=== PATIENT | male | born 1950 | race Caucasian/White ===

== ENCOUNTER 2017-10-24 22:55 | Inpatient (IN) ==
[2017-10-25 00:06] LABS: Basophils % 0.2 %; Eosinophils % 0.7 %; Hematocrit 39.8 % (37.5-50.1); Hemoglobin 13.9 g/dL (12.9-16.9); Immature Granulocytes % 0.3 % (0-4); Lymphocytes # 0.7 K/mcL (0.6-4.6); Lymphocytes % 12.5 %; Mean Corpuscular HGB Conc 34.9 g/dL (31.6-35.5); Mean Corpuscular Volume 83.1 fL (83.0-100.0); Mean Platelet Volume 8.9 fL (9.4-12.4); Monocytes # 0.4 K/mcL (0.0-1.3); Monocytes % 6.9 %; Neutrophils # 4.6 K/mcL (1.6-8.9); Platelet Count 214 K/mcL (140-400); Red Blood Count 4.79 M/mcL (4.19-5.50); Red Cell Distribution Width 12.9 % (11.5-14.5); Segmented Neutrophils % 79.4 %
[2017-10-25 00:51] LABS: BUN/Creatinine Ratio 16 (6-26); Blood Urea Nitrogen 8 mg/dL (8-23); Calcium 8.7 mg/dL (8.6-10.3); Carbon Dioxide 27 mEq/L (23-29); Chloride 84 mEq/L (98-107); Glucose 124 mg/dL (70-105); Osmolality,Calculated 250 (280-300); Potassium 4.5 mEq/L (3.5-5.1); Sodium 120 mEq/L (136-145); eGFR For African Americans > 60 (> 60); eGFR For Non-African Americans > 60 (> 60)
[2017-10-25] MEDS ORDERED: 0.9 % Sodium Chloride 1,000 ML IVC ONE (01:05)
[2017-10-25] MEDS ORDERED: *HR* OxyCODONE Immed Rel 5 MG TABLET PO ONE (04:00)
[2017-10-25] MEDS ORDERED: Benzonatate 100 MG CAPSULE PO STA (04:00)
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
--- NOTE | 2017-10-25 08:46 | Electrocardiograph Report ---
[place] [id number] Test Date: 2017-10-24 Pat Name: Alireza Samuels Department: 102 Room: 2N01 Gender: M Story Writer: : 1950 Requested By: Mark Richard Order Number: [id number] Reading MD: Hebert Landers DO Measurements Intervals Hector Rate: 95 P: 83 OK: 175 QRS: 65 QRSD: 86 T: 77 QT: 348 QTc: 401 Interpretive Statements SINUS RHYTHM Electronically Signed On 10-25-2017 8:44:16 EST by Hebert Landers DO
[2017-10-25] MEDS ORDERED: Naloxone 0.4 MG/ML INJ IVP PRN (09:56)
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
[2017-10-25] MEDS ORDERED: Ipratropium/Albuterol Neb 3 ML IH PRN (10:16)
[2017-10-25 10:25] LABS: Bilirubin,Urine Negative (Negative); Blood,Urine Large (Negative); Clarity,Urine Cloudy (Clear); Color,Urine Pink (Yellow); Glucose,Urine (UA) Normal (Normal); Ketones,Urine Negative (Negative); Leukocyte Esterase,Urine Moderate (Negative); Nitrite,Urine Negative (Negative); PH,Urine 6.5 pH Units (5.0-8.0); Protein,Urine 30 mg/dL (Neg-Trace); Urobilinogen,Urine Normal (Normal)
[2017-10-25] MEDS: cefTRIAXone 1,000 MG in Water for inj. (sterile) 20 ML 20 ML IVPB SCH (10:31)
[2017-10-25] MEDS: Azithromycin 500 MG in D5% in Water 250 ML IVPB SCH (10:35)
[2017-10-25 11:07] LABS: BUN/Creatinine Ratio 10 (6-26); Blood Urea Nitrogen 5 mg/dL (8-23); Calcium 8.6 mg/dL (8.6-10.3); Carbon Dioxide 27 mEq/L (23-29); Chloride 85 mEq/L (98-107); Glucose 99 mg/dL (70-105); Osmolality,Calculated 241 (280-300); Potassium 4.2 mEq/L (3.5-5.1); Sodium 117 mEq/L (136-145); eGFR For African Americans > 60 (> 60); eGFR For Non-African Americans > 60 (> 60)
[2017-10-25 11:19] LABS: RBC,Urine TNTC per hpf (0-3); WBC,Urine TNTC per hpf (0-3)
[2017-10-25 11:20] LABS: Bacteria,Urine Moderate per hpf (None-Few); Renal Epithelial Cells,Urine Few per hpf (None-Few); Transitional Epi Cells,Urine Few per hpf (None-Few)
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
[2017-10-25] MEDS ORDERED: Cosyntropin 250 MCG/2 ML VIAL IVP ONE (11:30)
[2017-10-25] MEDS ORDERED: 0.9 % Sodium Chloride 1,000 ML IVC SCH (11:45)
[2017-10-25 13:23] LABS: Thyroid Stimulating Hormone 1.563 mcIU/mL (0.340-5.600)
[2017-10-25] MEDS: *HR* OxyCODONE Immed Rel 15 MG TABLET PO SCH ×2 (16:34→21:46)
[2017-10-25] MEDS: MethylPREDNISolone 40 MG/ML VIAL IVP SCH (16:34)
[2017-10-25] MEDS: *HR* Heparin 5,000 UNIT/ML VIAL SQ SCH (16:35)
[2017-10-26] MEDS: MethylPREDNISolone 40 MG/ML VIAL IVP SCH ×3 (01:19→18:05)
[2017-10-26] MEDS: *HR* Heparin 5,000 UNIT/ML VIAL SQ SCH ×3 (01:19→18:05)
[2017-10-26] MEDS: 0.9 % Sodium Chloride 1,000 ML IVC SCH ×2 (01:20→11:39)
[2017-10-26] MEDS ORDERED: Cosyntropin 250 MCG/2 ML VIAL IVP ONE (04:01)
[2017-10-26 05:38] LABS: Alanine Aminotransferase 44 Units/L (7-52); Albumin 3.7 g/dL (3.5-5.7); Albumin/Globulin Ratio 1.2 (1.1-2.2); Alkaline Phosphatase 68 Units/L (34-104); Aspartate Amino Transferase 112 Units/L (13-39); BUN/Creatinine Ratio 14 (6-26); Bilirubin,Total 0.8 mg/dL (0.3-1.0); Blood Urea Nitrogen 7 mg/dL (8-23); Calcium 8.1 mg/dL (8.6-10.3); Carbon Dioxide 29 mEq/L (23-29); Chloride 80 mEq/L (98-107); Chol/HDL Ratio 2.4 (0-4.9); Cholesterol 124 mg/dL (< 200); Glucose 123 mg/dL (70-105); HDL Cholesterol 52 mg/dL (40-59); LDL Cholesterol,Calculated 58 mg/dL (0-99); Magnesium 1.6 mg/dL (1.6-2.6); Osmolality,Calculated 237 (280-300); Phosphorous 2.9 mg/dL (2.7-4.5); Potassium 4.6 mEq/L (3.5-5.1); Sodium 114 mEq/L (136-145); Total Protein 6.7 g/dL (6.4-8.9); Triglycerides 71 mg/dL (< 150); eGFR For African Americans > 60 (> 60); eGFR For Non-African Americans > 60 (> 60)
[2017-10-26 05:50] LABS: Prothrombin Time 11.2 Seconds (9.4-12.1)
[2017-10-26 05:53] LABS: Activated Partial Thrombo Time 29.7 Seconds (26.0-36.0)
[2017-10-26 05:58] LABS: Hematocrit 37.9 % (37.5-50.1); Hemoglobin 13.3 g/dL (12.9-16.9); Immature Granulocytes % 0.3 % (0-4); Lymphocytes # 0.4 K/mcL (0.6-4.6); Lymphocytes % 6.7 %; Mean Corpuscular HGB Conc 35.1 g/dL (31.6-35.5); Mean Corpuscular Hemoglobin 29.1 pg (28.0-33.3); Mean Corpuscular Volume 82.9 fL (83.0-100.0); Mean Platelet Volume 9.9 fL (9.4-12.4); Monocytes # 0.1 K/mcL (0.0-1.3); Neutrophils # 5.5 K/mcL (1.6-8.9); Platelet Count 206 K/mcL (140-400); Red Blood Count 4.57 M/mcL (4.19-5.50); Red Cell Distribution Width 12.6 % (11.5-14.5)
[2017-10-26] MEDS: *HR* OxyCODONE Immed Rel 15 MG TABLET PO SCH ×2 (08:18→18:01)
--- NOTE | 2017-10-26 09:16 | Nephrology Progress Note ---
Date of Encounter: 10/26/17 Time of Encounter: 08:15 - Assessment and Plan (1) Hyponatremia Current Visit: Yes Status: Acute Hyponatremia-Prior sodium levels from 2014- Jun 2017 range 134-137. Diferential diagnosis-SAIDH like syndrome versus poor oral intake. Work up in progress. IV 0.9 NS at 125 cc/hr. Sodium down to 116, now 117 with increase in IV saline. Renal US negative. Etiology unclear, awaiting urine osum for review. Azithromycin for moderate leuks in urine. Subjective Interval history: Sitting up in bed, watching tv. States feels good. Discussed unclear etiology of hyponatremia, labs pending. Objective - Vital Signs Vital signs: Vital Signs Temp Pulse Resp BP Pulse Ox 10/26/17 07:06 97.7 F 85 18 128/82 94 10/26/17 06:00 88 20 145/102 93 10/26/17 03:00 86 24 150/101 97 10/26/17 00:58 98.4 F 98 18 155/93 94 10/25/17 22:54 88 10/25/17 22:40 88 18 147/92 95 10/25/17 19:54 104 10/25/17 19:33 98.2 F 112 16 117/76 96 10/25/17 19:20 90 10/25/17 19:00 107 24 117/76 90 10/25/17 16:15 97.7 F 89 15 79/60 96 10/25/17 11:35 97.7 F 89 15 79/60 96 10/25/17 11:11 97.7 F 89 15 79/60 96 Intake and Output 10/25/17 10/26/17 10/26/17 23:59 07:59 15:59 Intake Total 1160 / 1160 Output Total 0 / 0 1500 / 1500 Balance 1160 / 1160 -1500 / -1500 Intake: Oral 1160 / 1160 Output: Urine 0 / 0 Straight Cath 1500 / 1500 Other: Meal Dinner Percent of Meal Consumed 100% Weight 60.9 kg Patient Weight 10/26/17 23:59 Weight 60.9 kg - General Appearance General appearance: Present: well-developed, appears started age EENT: Present: mucous membranes moist Neck: Present: no JVD Respiratory: Present: clear Cardiology: Present: no edema, regular rate, regular rhythm Gastrointestinal: Present: normoactive bowel sounds, no tenderness Integumentary: Present: warm and dry Neurologic: Present: alert and oriented x3 Psychiatric: Present: mood/affect appropriate, cooperative - Lab 10/26/17 03:55 10/26/17 06:00 Most recent lab results Calcium 8.1 mg/dL (8.6-10.3) L 10/26/17 03:55 Phosphorus 2.9 mg/dL (2.7-4.5) 10/26/17 03:55 Magnesium 1.6 mg/dL (1.6-2.6) 10/26/17 03:55 Consult Discharge Plan - Plan Referrals: Robina Newman MD [Primary Care Provider] - 10/31/17 1:30 pm
[2017-10-26] MEDS: cefTRIAXone 1,000 MG in Water for inj. (sterile) 20 ML 20 ML IVPB SCH (09:23)
[2017-10-26] MEDS: Azithromycin 500 MG in D5% in Water 250 ML IVPB SCH (09:38)
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
[2017-10-26] MEDS ORDERED: *HR* LORazepam 2 MG/ML VIAL IVP ONE (15:51)
[2017-10-26] MEDS ORDERED: *HR* LORazepam 2 MG/ML VIAL ONE ×2 (15:55→16:21)
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
[2017-10-26 19:19] VITALS: BP 125/81
== END 2017-10-26 19:30 | disposition other institution (70) | DRG 191 ==
LOC: EMEROO 22:55 → 2NNU 22:55
PROVIDERS: ADMIT Student in an Organized Health Care Education/Training Program; ATTEND Hospitalist

== ENCOUNTER 2020-10-03 13:34 | Inpatient (IN) ==
[2020-10-03] MEDS ORDERED: Ondansetron 4 MG/2 ML VIAL IVP ONE (13:49)
[2020-10-03] MEDS ORDERED: Isovue-370 500 ML BOTTLE IVP ONE ×2 (13:50→20:24)
[2020-10-03] MEDS ORDERED: Ipratropium/Albuterol Neb 3 ML IH ONE (13:57)
[2020-10-03 14:20] LABS: Hematocrit 27.6 % (37.5-50.1); Hemoglobin 9.2 g/dL (12.9-16.9); Mean Corpuscular HGB Conc 33.3 g/dL (31.6-35.5); Mean Corpuscular Hemoglobin 29.6 pg (28.0-33.3); Mean Corpuscular Volume 88.7 fL (83.0-100.0); Mean Platelet Volume 8.8 fL (9.4-12.4); Platelet Count 574 K/mcL (140-400); Red Blood Count 3.11 M/mcL (4.19-5.50); Red Cell Distribution Width 14.6 % (11.5-14.5); White Blood Count 19.2 K/mcL (4.3-11.1)
[2020-10-03 14:27] LABS: INR 1.2; Prothrombin Time 13.5 Seconds (9.4-12.1)
[2020-10-03 14:30] LABS: Activated Partial Thrombo Time 26.2 Seconds (26.0-36.0)
[2020-10-03] MEDS ORDERED: Piperacillin/Tazobactam 4.5 GM in Water for inj. (sterile) 20 ML IVP ONE (14:34)
[2020-10-03 14:43] LABS: Lymphocytes # 0.8 K/mcL (0.6-4.6); Monocytes # 0.4 K/mcL (0.0-1.3); Neutrophils # 18.1 K/mcL (1.6-8.9)
[2020-10-03 14:45] LABS: Bacteria,Urine Few per hpf (None-Few); Bilirubin,Urine Negative (Negative); Blood,Urine Large (Negative); Clarity,Urine Ex.Turbid (Clear); Color,Urine Yellow (Yellow); Glucose,Urine (UA) Normal (Normal); Ketones,Urine Negative (Negative); Leukocyte Esterase,Urine Large (Negative); Nitrite,Urine Negative (Negative); PH,Urine 5.5 pH Units (5.0-8.0); Protein,Urine 100 mg/dL (Neg-Trace); RBC,Urine 15-30 per hpf (0-3); Specific Gravity,Urine 1.024 (1.010-1.025); Squamous Epithelial Cell,Urine Few per hpf (None-Few); Urobilinogen,Urine Normal (Normal); WBC,Urine TNTC per hpf (0-3)
[2020-10-03 14:53] LABS: Alanine Aminotransferase 16 Units/L (7-52); Albumin 3.2 g/dL (3.5-5.7); Albumin/Globulin Ratio 0.8 (1.1-2.2); Alkaline Phosphatase 61 Units/L (34-104); Amylase 18 Units/L (29-103); Aspartate Amino Transferase 27 Units/L (13-39); BUN/Creatinine Ratio 28 (6-26); Bilirubin,Direct 0.1 mg/dL (0.0-0.2); Bilirubin,Indirect 0.4 mg/dL (0.0-1.0); Bilirubin,Total 0.5 mg/dL (0.3-1.0); Blood Urea Nitrogen 74 mg/dL (8-23); Calcium 12.7 mg/dL (8.6-10.3); Carbon Dioxide 28 mEq/L (23-29); Chloride 84 mEq/L (98-107); Globulin 3.8 g/dL (2.4-3.5); Glucose 134 mg/dL (70-105); Lipase < 3 Units/L (11-82); Osmolality,Calculated 282 (280-300); Potassium 4.9 mEq/L (3.5-5.1); Sodium 124 mEq/L (136-145); Troponin I < 0.03 ng/mL (< 0.04); eGFR For African Americans 29 (> 60); eGFR For Non-African Americans 24 (> 60)
[2020-10-03] MEDS ORDERED: 0.9 % Sodium Chloride 1,000 ML IVC ONE (14:55)
[2020-10-03] MEDS ORDERED: Piperacillin/Tazobactam 3.375 GM in 0.9 % Sodium Chloride Mini Bag 100 ML IVPB ONE (15:00)
[2020-10-03 15:38] LABS: Adenovirus Not Detected (Not Detect); Bordetella Pertussis Not Detected (Not Detect); Chlamydophila pneumoniae Not Detected (Not Detect); Coronavirus 229E Not Detected (Not Detect); Coronavirus HKU1 Not Detected (Not Detect); Coronavirus NL63 Not Detected (Not Detect); Coronavirus OC43 Not Detected (Not Detect); Human Metapneumovirus Not Detected (Not Detect); Human Rhinovirus/Enterovirus Not Detected (Not Detect); Influenza A Subtype 2009 H1 Not Detected (Not Detect); Influenza B Not Detected (Not Detect); Mycoplasma pneumoniae Not Detected (Not Detect); Parainfluenza Virus 1 Not Detected (Not Detect); Parainfluenza Virus 2 Not Detected (Not Detect); Parainfluenza Virus 3 Not Detected (Not Detect); Parainfluenza Virus 4 Not Detected (Not Detect); Respiratory Syncytial Virus Not Detected (Not Detect); SARS-CoV-2 Not Detected (Not Detect)
[2020-10-03] MEDS ORDERED: 0.9 % Sodium Chloride 1,000 ML ONE (16:32)
[2020-10-03] MEDS: Ringers Solution, Lactated 1,000 ML IVC ONE ×2 (17:20→18:01)
[2020-10-03] MEDS ORDERED: *HR* Midazolam HCl 5 MG/5 ML VIAL IVP ONE (17:39)
[2020-10-03] MEDS ORDERED: Naloxone 0.4 MG/ML INJ IVP PRN ×2 (19:16→20:24)
[2020-10-03] MEDS ORDERED: Ringers Solution, Lactated 1,000 ML IVC SCH (20:00)
[2020-10-03] MEDS ORDERED: Ondansetron 4 MG/2 ML VIAL IVP PRN (20:24)
[2020-10-03] MEDS: *HR* Heparin 5,000 UNIT/ML VIAL SQ SCH (20:39)
[2020-10-03] MEDS: Pantoprazole 40 MG in 0.9 % Sodium Chloride Mini Bag 100 ML IVC SCH (20:39)
[2020-10-03] MEDS ORDERED: Ringers Solution, Lactated 1,000 ML IVC ONE (21:12)
[2020-10-03] MEDS: 0.9 % Sodium Chloride 1,000 ML IVC SCH (21:32)
[2020-10-03 21:37] LABS: Sodium, Urine 19.8 mEq/L
[2020-10-03] MEDS: Artificial Tears SOLN 15 ML BOTTLE BOTH EYES SCH (21:38)
[2020-10-03] MEDS: Chlorhexidine Rinse 15 ML MOUTHWASH MM SCH (21:38)
[2020-10-03] MEDS: Norepinephrine 4 MG/254 ML IV.SOLN IVC SCH (21:58)
[2020-10-03] MEDS: Ringers Solution, Lactated 1,000 ML IVC SCH (22:07)
[2020-10-03 22:50] LABS: Calcium 9.2 mg/dL (8.6-10.3); Magnesium 1.8 mg/dL (1.6-2.6); Phosphorous 5.7 mg/dL (2.7-4.5); Potassium 4.4 mEq/L (3.5-5.1)
[2020-10-03] MEDS ORDERED: 0.9 % Sodium Chloride 1,000 ML IV ONE (23:10)
[2020-10-03] MEDS: FentaNYL (PF) 1,000 MCG/100 ML IV.SOLN IVC SCH (23:27)
[2020-10-03 23:35] LABS: Hematocrit 22.3 % (37.5-50.1)
[2020-10-03 23:37] LABS: Hemoglobin 7.3 g/dL (12.9-16.9)
[2020-10-03] MEDS ORDERED: 0.9 % Sodium Chloride 250 ML IVC SCH (23:45)
[2020-10-04 00:22] LABS: ABG Base Excess -2 mEq/L (-2 to 3); ABG HCO3 24 mEq/L (21-27); ABG Oxygen Saturation 94 % (95-98); ABG PCO2 48 mmHg (35-45); ABG PH 7.31 pH Units (7.32-7.45); ABG PO2 78 mmHg (85-104); ABG TCO2 26 mEq/L (20-26); Blood Gas Modality ASSIST CONTROL; Blood Gas VT 500 cc
[2020-10-04] MEDS ORDERED: 0.9 % Sodium Chloride 500 ML ONE (00:46)
[2020-10-04] MEDS ORDERED: Fluconazole 200 MG/100 ML 200 MG/100 ML BAG IVPB SCH (01:00)
[2020-10-04] MEDS: Pantoprazole 40 MG in 0.9 % Sodium Chloride Mini Bag 100 ML IVC SCH ×5 (01:10→20:49)
[2020-10-04] MEDS: Artificial Tears SOLN 15 ML BOTTLE BOTH EYES SCH ×6 (01:13→23:36)
[2020-10-04] MEDS: Vasopressin 40 UNIT in D5% in Water 100 ML IVC SCH ×2 (01:35→20:49)
[2020-10-04] MEDS: Midazolam HCl 50 MG/100 ML IV.SOLN IVC SCH ×2 (02:19→23:36)
[2020-10-04] MEDS: Norepinephrine 4 MG/254 ML IV.SOLN IVC SCH ×4 (02:36→18:08)
[2020-10-04 02:38] LABS: Hematocrit 20.4 % (37.5-50.1); Hemoglobin 6.8 g/dL (12.9-16.9)
[2020-10-04] MEDS: Ringers Solution, Lactated 1,000 ML IVC SCH ×4 (03:05→23:35)
[2020-10-04] MEDS ORDERED: Piperacillin/Tazobactam 3.375 GM in 0.9 % Sodium Chloride Mini Bag 100 ML IVPB SCH ×3 (04:00→12:00)
[2020-10-04] MEDS ORDERED: Ringers Solution, Lactated 1,000 ML IVC ONE (04:19)
[2020-10-04 04:49] LABS: ABG Base Excess -5 mEq/L (-2 to 3); ABG HCO3 21 mEq/L (21-27); ABG Oxygen Saturation 92 % (95-98); ABG PCO2 40 mmHg (35-45); ABG PH 7.32 pH Units (7.32-7.45); ABG PO2 70 mmHg (85-104); ABG TCO2 22 mEq/L (20-26); Blood Gas Modality ASSIST CONTROL; Blood Gas VT 500 cc
[2020-10-04 05:25] LABS: VBG Ionized Calcium 1.28 mmol/L (1.15-1.35)
[2020-10-04] MEDS: *HR* Heparin 5,000 UNIT/ML VIAL SQ SCH ×2 (05:28→17:06)
[2020-10-04 05:37] LABS: Magnesium 1.8 mg/dL (1.6-2.6); Phosphorous 5.3 mg/dL (2.7-4.5)
[2020-10-04] MEDS ORDERED: Pantoprazole 40 MG VIAL IVP SCH (06:30)
[2020-10-04 06:31] LABS: Hematocrit 26.4 % (37.5-50.1); Mean Corpuscular Hemoglobin 29.8 pg (28.0-33.3); Mean Corpuscular Volume 90.4 fL (83.0-100.0); Mean Platelet Volume 8.8 fL (9.4-12.4); Nucleated Red Blood Cells 0.5 /100 WBC (0); Platelet Count 348 K/mcL (140-400); Red Blood Count 2.92 M/mcL (4.19-5.50); Red Cell Distribution Width 14.3 % (11.5-14.5); White Blood Count 10.9 K/mcL (4.3-11.1)
[2020-10-04 06:43] LABS: Hemoglobin 8.7 g/dL (12.9-16.9)
[2020-10-04 06:51] LABS: Calcium 8.9 mg/dL (8.6-10.3); Potassium 4.5 mEq/L (3.5-5.1)
[2020-10-04 07:04] LABS: Thyroid Stimulating Hormone 0.832 mcIU/mL (0.340-5.600)
[2020-10-04 07:09] LABS: Basophilic Stippling 1+ (Not Present); Lymphocytes # 0.9 K/mcL (0.6-4.6); Monocytes # 0.7 K/mcL (0.0-1.3); Neutrophils # 9.4 K/mcL (1.6-8.9); Platelet Estimate Normal (Normal); Poikilocytosis 1+ (Not Present); Polychromasia 1+ (Not Present); Toxic Granulation Present (Not Present)
[2020-10-04] MEDS: 0.9 % Sodium Chloride 1,000 ML IVC SCH ×3 (07:42→23:36)
[2020-10-04] MEDS ORDERED: *HR* Dextrose 50 % in Water (Vial) 50 ML VIAL ONE (07:51)
[2020-10-04] MEDS: *HR* Dextrose 50 % in Water (Vial) 50 ML VIAL IVP PRN ×3 (08:05→12:52)
[2020-10-04] MEDS: Chlorhexidine Rinse 15 ML MOUTHWASH MM SCH ×2 (08:05→20:49)
[2020-10-04] MEDS ORDERED: Famotidine 20 MG/2 ML VIAL IVP ONE (09:27)
[2020-10-04] MEDS: Dexmedetomidine HCl 400 MCG/100 ML MLS IVC SCH (09:54)
[2020-10-04] MEDS ORDERED: D10% in Water 500 ML IVC PRN (11:04)
[2020-10-04] MEDS ORDERED: Dextrose Gel 15 GM/37.5 ML TUBE PO PRN ×2 (11:59)
[2020-10-04] MEDS: Ertapenem 1,000 MG in 0.9 % Sodium Chloride Mini Bag 100 ML IVPB SCH (12:06)
[2020-10-04] MEDS: Insulin LISPRO 300 UNITS/3 ML VIAL SQ SCH ×4 (12:06→23:36)
[2020-10-04] MEDS: D10% in Water 500 ML IVC SCH ×2 (12:08→20:58)
[2020-10-04] MEDS: Silvasorb 44.4 ML TUBE TP SCH (14:14)
[2020-10-04 14:33] LABS: Hematocrit 27.5 % (37.5-50.1)
[2020-10-04] MEDS ORDERED: Clinimix 5%-20% SOLUTION 2,000 ML with MVI, adult with vitamin K 10 ML, Sodium Acetat... IVC SCH (17:00)
[2020-10-04] MEDS: Micafungin 100 MG in 0.9 % Sodium Chloride Mini Bag 100 ML IVPB SCH (20:49)
[2020-10-04] MEDS: FentaNYL (PF) 1,000 MCG/100 ML IV.SOLN IVC SCH (20:51)
[2020-10-04] MEDS: Hydrocortisone Sodium Succ 100 MG/2 ML VIAL IVP SCH (23:36)
[2020-10-05] MEDS: Norepinephrine 4 MG/254 ML IV.SOLN IVC SCH ×3 (01:00→14:49)
[2020-10-05] MEDS: Pantoprazole 40 MG in 0.9 % Sodium Chloride Mini Bag 100 ML IVC SCH ×5 (01:49→21:45)
[2020-10-05] MEDS: Insulin LISPRO 300 UNITS/3 ML VIAL SQ SCH ×6 (03:44→23:36)
[2020-10-05] MEDS: Artificial Tears SOLN 15 ML BOTTLE BOTH EYES SCH ×6 (03:45→23:36)
[2020-10-05] MEDS: Ringers Solution, Lactated 1,000 ML IVC SCH ×3 (03:45→12:14)
[2020-10-05 03:52] LABS: Hematocrit 28.9 % (37.5-50.1); Hemoglobin 9.4 g/dL (12.9-16.9); Mean Corpuscular HGB Conc 32.5 g/dL (31.6-35.5); Mean Corpuscular Hemoglobin 29.2 pg (28.0-33.3); Mean Corpuscular Volume 89.8 fL (83.0-100.0); Mean Platelet Volume 8.7 fL (9.4-12.4); Nucleated Red Blood Cells 0.8 /100 WBC (0); Platelet Count 392 K/mcL (140-400); Red Blood Count 3.22 M/mcL (4.19-5.50); Red Cell Distribution Width 15.1 % (11.5-14.5)
[2020-10-05 03:57] LABS: White Blood Count 24.9 K/mcL (4.3-11.1)
[2020-10-05 03:59] LABS: VBG Ionized Calcium 1.22 mmol/L (1.15-1.35)
[2020-10-05 04:12] LABS: BUN/Creatinine Ratio 44 (6-26); Blood Urea Nitrogen 60 mg/dL (8-23); Calcium 8.3 mg/dL (8.6-10.3); Carbon Dioxide 21 mEq/L (23-29); Chloride 102 mEq/L (98-107); Glucose 139 mg/dL (70-105); Magnesium 1.8 mg/dL (1.6-2.6); Osmolality,Calculated 287 (280-300); Potassium 4.8 mEq/L (3.5-5.1); Sodium 129 mEq/L (136-145); Triglycerides 220 mg/dL (< 150); eGFR For African Americans > 60 (> 60); eGFR For Non-African Americans 52 (> 60)
[2020-10-05 04:24] LABS: ABG Base Excess -5 mEq/L (-2 to 3); ABG HCO3 22 mEq/L (21-27); ABG Oxygen Saturation 98 % (95-98); ABG PCO2 48 mmHg (35-45); ABG PH 7.27 pH Units (7.32-7.45); ABG PO2 115 mmHg (85-104); ABG TCO2 23 mEq/L (20-26); Blood Gas Modality ASSIST CONTROL; Blood Gas VT 500 cc
[2020-10-05 04:38] LABS: Neutrophils # 17.4 K/mcL (1.6-8.9)
[2020-10-05 04:39] LABS: Platelet Estimate Normal (Normal); Poikilocytosis 1+ (Not Present); Polychromasia 1+ (Not Present); Toxic Granulation Present (Not Present); Toxic Vacuolation Present (Not Present)
[2020-10-05] MEDS: *HR* Heparin 5,000 UNIT/ML VIAL SQ SCH ×2 (05:49→17:18)
[2020-10-05] MEDS: D10% in Water 500 ML IVC SCH ×2 (07:18→12:14)
[2020-10-05] MEDS: Hydrocortisone Sodium Succ 100 MG/2 ML VIAL IVP SCH ×3 (07:18→23:36)
[2020-10-05] MEDS: Chlorhexidine Rinse 15 ML MOUTHWASH MM SCH ×2 (07:19→20:01)
[2020-10-05] MEDS: Dexmedetomidine HCl 400 MCG/100 ML MLS IVC SCH (07:20)
[2020-10-05] MEDS: Silvasorb 44.4 ML TUBE TP SCH (07:20)
[2020-10-05] MEDS: 0.9 % Sodium Chloride 1,000 ML IVC SCH (09:08)
[2020-10-05] MEDS: Ertapenem 1,000 MG in 0.9 % Sodium Chloride Mini Bag 100 ML IVPB SCH (11:04)
[2020-10-05 11:48] LABS: Alanine Aminotransferase 43 Units/L (7-52); Albumin 1.9 g/dL (3.5-5.7); Albumin/Globulin Ratio 0.8 (1.1-2.2); Alkaline Phosphatase 45 Units/L (34-104); Aspartate Amino Transferase 128 Units/L (13-39); Bilirubin,Direct 0.2 mg/dL (0.0-0.2); Bilirubin,Indirect 0.2 mg/dL (0.0-1.0); Bilirubin,Total 0.4 mg/dL (0.3-1.0); Globulin 2.3 g/dL (2.4-3.5); Total Protein 4.2 g/dL (6.4-8.9)
[2020-10-05] MEDS ORDERED: Clinimix E 5%-20% SOLUTION 2,000 ML with MVI, adult with vitamin K 10 ML IVC SCH (17:00)
[2020-10-05] MEDS: FentaNYL (PF) 1,000 MCG/100 ML IV.SOLN IVC SCH (19:58)
[2020-10-05] MEDS: Micafungin 100 MG in 0.9 % Sodium Chloride Mini Bag 100 ML IVPB SCH (20:01)
[2020-10-05] MEDS: Vasopressin 40 UNIT in D5% in Water 100 ML IVC SCH (20:01)
[2020-10-05] MEDS: Midazolam HCl 50 MG/100 ML IV.SOLN IVC SCH (23:37)
[2020-10-06] MEDS: Pantoprazole 40 MG in 0.9 % Sodium Chloride Mini Bag 100 ML IVC SCH ×2 (03:44→09:00)
[2020-10-06] MEDS: Insulin LISPRO 300 UNITS/3 ML VIAL SQ SCH ×5 (03:45→19:47)
[2020-10-06] MEDS: D10% in Water 500 ML IVC SCH ×2 (03:45→22:08)
[2020-10-06] MEDS: Artificial Tears SOLN 15 ML BOTTLE BOTH EYES SCH ×5 (03:46→19:46)
[2020-10-06 03:51] LABS: Hematocrit 25.7 % (37.5-50.1); Hemoglobin 8.4 g/dL (12.9-16.9); Mean Corpuscular HGB Conc 32.7 g/dL (31.6-35.5); Mean Corpuscular Hemoglobin 29.2 pg (28.0-33.3); Mean Corpuscular Volume 89.2 fL (83.0-100.0); Mean Platelet Volume 8.6 fL (9.4-12.4); Nucleated Red Blood Cells 0.2 /100 WBC (0); Platelet Count 275 K/mcL (140-400); Red Blood Count 2.88 M/mcL (4.19-5.50); Red Cell Distribution Width 15.1 % (11.5-14.5); White Blood Count 22.1 K/mcL (4.3-11.1)
[2020-10-06 04:04] LABS: Alanine Aminotransferase 37 Units/L (7-52); Albumin/Globulin Ratio 0.8 (1.1-2.2); Alkaline Phosphatase 56 Units/L (34-104); Aspartate Amino Transferase 54 Units/L (13-39); BUN/Creatinine Ratio 61 (6-26); Bilirubin,Direct 0.2 mg/dL (0.0-0.2); Bilirubin,Indirect 0.2 mg/dL (0.0-1.0); Bilirubin,Total 0.4 mg/dL (0.3-1.0); Blood Urea Nitrogen 51 mg/dL (8-23); Calcium 8.6 mg/dL (8.6-10.3); Carbon Dioxide 22 mEq/L (23-29); Chloride 107 mEq/L (98-107); Globulin 2.4 g/dL (2.4-3.5); Glucose 143 mg/dL (70-105); Magnesium 1.7 mg/dL (1.6-2.6); Osmolality,Calculated 294 (280-300); Phosphorous 2.4 mg/dL (2.7-4.5); Potassium 4.1 mEq/L (3.5-5.1); Sodium 134 mEq/L (136-145); Total Protein 4.4 g/dL (6.4-8.9); eGFR For African Americans > 60 (> 60); eGFR For Non-African Americans > 60 (> 60)
[2020-10-06 04:08] LABS: ABG Base Excess -1 mEq/L (-2 to 3); ABG HCO3 24 mEq/L (21-27); ABG Oxygen Saturation 92 % (95-98); ABG PCO2 41 mmHg (35-45); ABG PH 7.38 pH Units (7.32-7.45); ABG PO2 65 mmHg (85-104); ABG TCO2 25 mEq/L (20-26); Blood Gas Modality ASSIST CONTROL; Blood Gas VT 500 cc
[2020-10-06 04:58] LABS: Lymphocytes # 0.4 K/mcL (0.6-4.6); Monocytes # 0.9 K/mcL (0.0-1.3); Neutrophils # 20.8 K/mcL (1.6-8.9)
[2020-10-06 04:59] LABS: Anisocytosis 1+ (Not Present); Platelet Estimate Normal (Normal); Poikilocytosis 1+ (Not Present); Toxic Granulation Present (Not Present)
[2020-10-06] MEDS: *HR* Heparin 5,000 UNIT/ML VIAL SQ SCH ×2 (05:12→17:56)
[2020-10-06] MEDS: Chlorhexidine Rinse 15 ML MOUTHWASH MM SCH ×2 (08:58→19:46)
[2020-10-06] MEDS: Silvasorb 44.4 ML TUBE TP SCH (09:01)
[2020-10-06] MEDS ORDERED: Calcium Gluconate 1gm/50mL 1 GM/50 ML BAG IVPB PRN (10:38)
[2020-10-06] MEDS: Dexmedetomidine HCl 400 MCG/100 ML MLS IVC SCH (12:14)
[2020-10-06] MEDS: Ertapenem 1,000 MG in 0.9 % Sodium Chloride Mini Bag 100 ML IVPB SCH (13:05)
[2020-10-06] MEDS: FentaNYL (PF) 1,000 MCG/100 ML IV.SOLN IVC SCH (16:30)
[2020-10-06] MEDS ORDERED: Furosemide 40 MG/4 ML VIAL IVP ONE (16:36)
[2020-10-06] MEDS ORDERED: Clinimix E 5%-20% SOLUTION 2,000 ML with MVI, adult with vitamin K 10 ML IVC SCH (17:00)
[2020-10-06] MEDS: Pantoprazole 40 MG VIAL IVP SCH (18:00)
[2020-10-06] MEDS: Micafungin 100 MG in 0.9 % Sodium Chloride Mini Bag 100 ML IVPB SCH (19:46)
[2020-10-06] MEDS: Vasopressin 40 UNIT in D5% in Water 100 ML IVC SCH (22:08)
[2020-10-07] MEDS: Artificial Tears SOLN 15 ML BOTTLE BOTH EYES SCH ×7 (01:39→23:25)
[2020-10-07] MEDS: Insulin LISPRO 300 UNITS/3 ML VIAL SQ SCH ×7 (01:40→23:25)
[2020-10-07] MEDS: Dexmedetomidine HCl 400 MCG/100 ML MLS IVC SCH ×2 (01:40→14:09)
[2020-10-07 04:49] LABS: ABG Base Excess 0 mEq/L (-2 to 3); ABG HCO3 27 mEq/L (21-27); ABG Oxygen Saturation 87 % (95-98); ABG PCO2 52 mmHg (35-45); ABG PH 7.31 pH Units (7.32-7.45); ABG PO2 59 mmHg (85-104); ABG TCO2 28 mEq/L (20-26); Blood Gas VT 500 cc
[2020-10-07 05:10] LABS: Hemoglobin 9.1 g/dL (12.9-16.9)
[2020-10-07 05:11] LABS: Hematocrit 28.1 % (37.5-50.1); Mean Corpuscular HGB Conc 32.4 g/dL (31.6-35.5); Mean Corpuscular Hemoglobin 29.9 pg (28.0-33.3); Mean Corpuscular Volume 92.4 fL (83.0-100.0); Nucleated Red Blood Cells 0.2 /100 WBC (0); Platelet Count 255 K/mcL (140-400); Red Blood Count 3.04 M/mcL (4.19-5.50); Red Cell Distribution Width 15.6 % (11.5-14.5); White Blood Count 28.7 K/mcL (4.3-11.1)
[2020-10-07 05:15] LABS: BUN/Creatinine Ratio 77 (6-26); Blood Urea Nitrogen 40 mg/dL (8-23); Calcium 8.8 mg/dL (8.6-10.3); Carbon Dioxide 24 mEq/L (23-29); Chloride 108 mEq/L (98-107); Glucose 110 mg/dL (70-105); Magnesium 1.7 mg/dL (1.6-2.6); Osmolality,Calculated 298 (280-300); Potassium 3.6 mEq/L (3.5-5.1); Sodium 139 mEq/L (136-145); eGFR For African Americans > 60 (> 60); eGFR For Non-African Americans > 60 (> 60)
[2020-10-07] MEDS: *HR* Heparin 5,000 UNIT/ML VIAL SQ SCH ×2 (06:22→17:59)
[2020-10-07] MEDS: Pantoprazole 40 MG VIAL IVP SCH ×2 (06:22→17:59)
[2020-10-07 06:44] LABS: Lymphocytes # 1.2 K/mcL (0.6-4.6); Platelet Estimate Normal (Normal); Poikilocytosis 1+ (Not Present); Smudge Cells Present (Not Present); Toxic Granulation Present (Not Present)
[2020-10-07] MEDS: Chlorhexidine Rinse 15 ML MOUTHWASH MM SCH ×2 (08:22→19:52)
[2020-10-07] MEDS: Meropenem 1,000 MG in 0.9 % Sodium Chloride Mini Bag 100 ML IVPB SCH ×3 (08:23→23:25)
[2020-10-07] MEDS: Silvasorb 44.4 ML TUBE TP SCH (08:24)
[2020-10-07] MEDS ORDERED: Dexamethasone 4 MG/ML VIAL IVP ONE (11:21)
[2020-10-07] MEDS: Norepinephrine 4 MG/254 ML IV.SOLN IVC SCH (14:13)
[2020-10-07] MEDS: FentaNYL (PF) 1,000 MCG/100 ML IV.SOLN IVC SCH (16:00)
[2020-10-07] MEDS ORDERED: Clinimix E 5%-20% SOLUTION 2,000 ML with MVI, adult with vitamin K 10 ML, Trace Eleme... IVC SCH (17:00)
[2020-10-07 18:04] LABS: Appearance of Body Fluid Cloudy (Clear); Volume of Body Fluid 15 mL
[2020-10-07] MEDS: D10% in Water 500 ML IVC SCH ×3 (19:31→19:44)
[2020-10-07] MEDS: Midazolam HCl 50 MG/100 ML IV.SOLN IVC SCH (19:31)
[2020-10-07] MEDS: Vasopressin 40 UNIT in D5% in Water 100 ML IVC SCH (19:31)
[2020-10-07] MEDS: Micafungin 100 MG in 0.9 % Sodium Chloride Mini Bag 100 ML IVPB SCH (19:52)
[2020-10-08] MEDS: Dexmedetomidine HCl 400 MCG/100 ML MLS IVC SCH ×3 (01:46→22:26)
[2020-10-08] MEDS: Insulin LISPRO 300 UNITS/3 ML VIAL SQ SCH ×6 (03:12→23:35)
[2020-10-08] MEDS: Artificial Tears SOLN 15 ML BOTTLE BOTH EYES SCH ×6 (03:22→23:37)
[2020-10-08] MEDS: Norepinephrine 4 MG/254 ML IV.SOLN IVC SCH (03:27)
[2020-10-08] MEDS ORDERED: *HR* Alteplase (Cathflo) 2 MG VIAL IVP PRN (03:55)
[2020-10-08] MEDS: FentaNYL (PF) 1,000 MCG/100 ML IV.SOLN IVC SCH ×3 (04:00→19:00)
[2020-10-08 04:48] LABS: ABG Base Excess 3 mEq/L (-2 to 3); ABG HCO3 30 mEq/L (21-27); ABG Oxygen Saturation 98 % (95-98); ABG PCO2 56 mmHg (35-45); ABG PH 7.34 pH Units (7.32-7.45); ABG PO2 105 mmHg (85-104); ABG TCO2 32 mEq/L (20-26); Blood Gas Modality ASSIST CONTROL; Blood Gas VT 500 cc
[2020-10-08] MEDS: Pantoprazole 40 MG VIAL IVP SCH ×2 (05:28→17:07)
[2020-10-08] MEDS: *HR* Heparin 5,000 UNIT/ML VIAL SQ SCH ×2 (05:28→17:07)
[2020-10-08] MEDS: D10% in Water 500 ML IVC SCH ×2 (06:09→16:55)
[2020-10-08] MEDS: Midazolam HCl 50 MG/100 ML IV.SOLN IVC SCH (06:09)
[2020-10-08 07:15] LABS: Basophils # 0.1 K/mcL (0.0-0.2); Basophils % 0.4 %; Hematocrit 27.6 % (37.5-50.1); Hemoglobin 8.7 g/dL (12.9-16.9); Immature Granulocytes % 3.6 % (0-4); Lymphocytes # 0.7 K/mcL (0.6-4.6); Lymphocytes % 3.2 %; Mean Corpuscular HGB Conc 31.5 g/dL (31.6-35.5); Mean Corpuscular Hemoglobin 29.3 pg (28.0-33.3); Mean Corpuscular Volume 92.9 fL (83.0-100.0); Mean Platelet Volume 9.2 fL (9.4-12.4); Monocytes # 0.8 K/mcL (0.0-1.3); Monocytes % 3.4 %; Nucleated Red Blood Cells 0.5 /100 WBC (0); Platelet Count 250 K/mcL (140-400); Red Blood Count 2.97 M/mcL (4.19-5.50); Red Cell Distribution Width 15.7 % (11.5-14.5); Segmented Neutrophils % 89.4 %; White Blood Count 22.4 K/mcL (4.3-11.1)
[2020-10-08 07:34] LABS: Magnesium 1.5 mg/dL (1.6-2.6); Phosphorous 2.5 mg/dL (2.7-4.5)
[2020-10-08 08:06] LABS: Alanine Aminotransferase 22 Units/L (7-52); Albumin/Globulin Ratio 0.7 (1.1-2.2); Alkaline Phosphatase 62 Units/L (34-104); Aspartate Amino Transferase 13 Units/L (13-39); BUN/Creatinine Ratio 74 (6-26); Bilirubin,Total 0.3 mg/dL (0.3-1.0); Blood Urea Nitrogen 32 mg/dL (8-23); Calcium 8.5 mg/dL (8.6-10.3); Carbon Dioxide 30 mEq/L (23-29); Chloride 108 mEq/L (98-107); Globulin 2.7 g/dL (2.4-3.5); Glucose 177 mg/dL (70-105); Osmolality,Calculated 299 (280-300); Potassium 4.6 mEq/L (3.5-5.1); Sodium 139 mEq/L (136-145); Total Protein 4.7 g/dL (6.4-8.9); eGFR For African Americans > 60 (> 60); eGFR For Non-African Americans > 60 (> 60)
[2020-10-08] MEDS: Chlorhexidine Rinse 15 ML MOUTHWASH MM SCH ×2 (08:54→20:16)
[2020-10-08 08:56] LABS: Acinetobacter baumannii by PCR Not Detected (Not Detect); Candida albicans by PCR DETECTED (Not Detect); Candida glabrata by PCR Not Detected (Not Detect); Candida krusei by PCR Not Detected (Not Detect); Candida parapsilosis by PCR Not Detected (Not Detect); Candida tropicalis by PCR Not Detected (Not Detect); Enterobacter cloacae Cmplx PCR Not Detected (Not Detect); Enterobacteriaceae by PCR Not Detected (Not Detect); Enterococcus by PCR Not Detected (Not Detect); Escherichia coli by PCR Not Detected (Not Detect); Klebsiella oxytoca by PCR Not Detected (Not Detect); Klebsiella pneumoniae by PCR Not Detected (Not Detect); Proteus by PCR Not Detected (Not Detect); Pseudomonas aeruginosa by PCR Not Detected (Not Detect); Serratia marcescens by PCR Not Detected (Not Detect); Staphylococcus aureus by PCR Not Detected (Not Detect); Staphylococcus by PCR Not Detected (Not Detect); Streptococcus agalactiae(B)PCR Not Detected (Not Detect); Streptococcus by PCR Not Detected (Not Detect); Streptococcus pneumoniae PCR Not Detected (Not Detect); Streptococcus pyogenes (A) PCR Not Detected (Not Detect)
[2020-10-08] MEDS: Meropenem 1,000 MG in 0.9 % Sodium Chloride Mini Bag 100 ML IVPB SCH ×3 (08:56→23:38)
[2020-10-08] MEDS ORDERED: Furosemide 40 MG/4 ML VIAL IVP ONE (09:18)
[2020-10-08] MEDS: Silvasorb 44.4 ML TUBE TP SCH (10:19)
[2020-10-08] MEDS ORDERED: Clinimix E 5%-20% SOLUTION 2,000 ML with MVI, adult with vitamin K 10 ML, Trace Eleme... IVC SCH (17:00)
[2020-10-08] MEDS: Vasopressin 40 UNIT in D5% in Water 100 ML IVC SCH (17:02)
[2020-10-08] MEDS: Micafungin 100 MG in 0.9 % Sodium Chloride Mini Bag 100 ML IVPB SCH (20:14)
[2020-10-09] MEDS: D10% in Water 500 ML IVC SCH (01:14)
[2020-10-09] MEDS: Norepinephrine 4 MG/254 ML IV.SOLN IVC SCH ×2 (01:15→19:36)
[2020-10-09] MEDS: FentaNYL (PF) 1,000 MCG/100 ML IV.SOLN IVC SCH ×4 (01:16→22:46)
[2020-10-09] MEDS: Midazolam HCl 50 MG/100 ML IV.SOLN IVC SCH (01:20)
[2020-10-09] MEDS: Insulin LISPRO 300 UNITS/3 ML VIAL SQ SCH ×6 (03:27→23:50)
[2020-10-09] MEDS: Artificial Tears SOLN 15 ML BOTTLE BOTH EYES SCH ×6 (03:27→23:46)
[2020-10-09 05:08] LABS: ABG Base Excess 8 mEq/L (-2 to 3); ABG HCO3 34 mEq/L (21-27); ABG Oxygen Saturation 96 % (95-98); ABG PCO2 55 mmHg (35-45); ABG PH 7.39 pH Units (7.32-7.45); ABG PO2 85 mmHg (85-104); ABG TCO2 35 mEq/L (20-26); Blood Gas Modality ASSIST CONTROL; Blood Gas VT 500 cc
[2020-10-09] MEDS: Pantoprazole 40 MG VIAL IVP SCH ×2 (05:19→16:35)
[2020-10-09] MEDS: *HR* Heparin 5,000 UNIT/ML VIAL SQ SCH ×2 (05:20→16:35)
[2020-10-09 06:23] LABS: VBG Ionized Calcium 1.26 mmol/L (1.15-1.35)
[2020-10-09 06:25] LABS: Hematocrit 30.7 % (37.5-50.1); Hemoglobin 9.5 g/dL (12.9-16.9); Mean Corpuscular HGB Conc 30.9 g/dL (31.6-35.5); Mean Corpuscular Hemoglobin 29.4 pg (28.0-33.3); Mean Platelet Volume 9.1 fL (9.4-12.4); Nucleated Red Blood Cells 0.6 /100 WBC (0); Platelet Count 310 K/mcL (140-400); Red Blood Count 3.23 M/mcL (4.19-5.50); Red Cell Distribution Width 15.6 % (11.5-14.5); White Blood Count 21.8 K/mcL (4.3-11.1)
[2020-10-09 06:40] LABS: BUN/Creatinine Ratio 89 (6-26); Blood Urea Nitrogen 33 mg/dL (8-23); Calcium 8.4 mg/dL (8.6-10.3); Carbon Dioxide 35 mEq/L (23-29); Chloride 104 mEq/L (98-107); Glucose 130 mg/dL (70-105); Magnesium 1.5 mg/dL (1.6-2.6); Osmolality,Calculated 301 (280-300); Phosphorous 2.3 mg/dL (2.7-4.5); Potassium 3.8 mEq/L (3.5-5.1); Sodium 141 mEq/L (136-145); eGFR For African Americans > 60 (> 60); eGFR For Non-African Americans > 60 (> 60)
[2020-10-09 06:48] LABS: Lymphocytes # 1.3 K/mcL (0.6-4.6); Monocytes # 1.3 K/mcL (0.0-1.3); Neutrophils # 19.2 K/mcL (1.6-8.9); Platelet Estimate Increased (Normal); Polychromasia 2+ (Not Present); Toxic Granulation Present (Not Present)
[2020-10-09] MEDS ORDERED: Furosemide 40 MG/4 ML VIAL IVP ONE (07:48)
[2020-10-09] MEDS: Chlorhexidine Rinse 15 ML MOUTHWASH MM SCH ×2 (07:57→20:18)
[2020-10-09] MEDS: Meropenem 1,000 MG in 0.9 % Sodium Chloride Mini Bag 100 ML IVPB SCH ×3 (07:58→23:35)
[2020-10-09] MEDS: Dexmedetomidine HCl 400 MCG/100 ML MLS IVC SCH ×2 (08:07→21:17)
[2020-10-09] MEDS: *HR* HYDROmorphone (PF) 1 MG/ML SYRINGE IVP PRN (15:37)
[2020-10-09] MEDS: Silvasorb 44.4 ML TUBE TP SCH (17:00)
[2020-10-09] MEDS ORDERED: Clinimix E 5%-20% SOLUTION 2,000 ML with MVI, adult with vitamin K 10 ML, Trace Eleme... IVC SCH (17:00)
[2020-10-09] MEDS: Micafungin 100 MG in 0.9 % Sodium Chloride Mini Bag 100 ML IVPB SCH (20:18)
[2020-10-10] MEDS: Midazolam HCl 50 MG/100 ML IV.SOLN IVC SCH ×2 (02:10→23:23)
[2020-10-10] MEDS: Artificial Tears SOLN 15 ML BOTTLE BOTH EYES SCH ×6 (03:57→23:22)
[2020-10-10] MEDS: Insulin LISPRO 300 UNITS/3 ML VIAL SQ SCH ×6 (03:58→23:22)
[2020-10-10] MEDS: *HR* Heparin 5,000 UNIT/ML VIAL SQ SCH ×2 (05:12→18:28)
[2020-10-10] MEDS: Pantoprazole 40 MG VIAL IVP SCH ×2 (05:13→18:29)
[2020-10-10 05:28] LABS: ABG Base Excess 9 mEq/L (-2 to 3); ABG HCO3 36 mEq/L (21-27); ABG Oxygen Saturation 86 % (95-98); ABG PCO2 58 mmHg (35-45); ABG PO2 53 mmHg (85-104); ABG TCO2 38 mEq/L (20-26); Blood Gas Modality ASSIST CONTROL; Blood Gas VT 500 cc
[2020-10-10 05:52] LABS: BUN/Creatinine Ratio 76 (6-26); Blood Urea Nitrogen 34 mg/dL (8-23); Calcium 8.2 mg/dL (8.6-10.3); Carbon Dioxide 35 mEq/L (23-29); Chloride 103 mEq/L (98-107); Glucose 196 mg/dL (70-105); Magnesium 1.7 mg/dL (1.6-2.6); Osmolality,Calculated 305 (280-300); Phosphorous 3.9 mg/dL (2.7-4.5); Potassium 4.6 mEq/L (3.5-5.1); Sodium 141 mEq/L (136-145); eGFR For African Americans > 60 (> 60); eGFR For Non-African Americans > 60 (> 60)
[2020-10-10] MEDS: D10% in Water 500 ML IVC SCH ×7 (07:30→21:46)
[2020-10-10] MEDS: FentaNYL (PF) 1,000 MCG/100 ML IV.SOLN IVC SCH (07:57)
[2020-10-10] MEDS: Norepinephrine 4 MG/254 ML IV.SOLN IVC SCH (07:58)
[2020-10-10] MEDS: Meropenem 1,000 MG in 0.9 % Sodium Chloride Mini Bag 100 ML IVPB SCH ×3 (09:36→23:22)
[2020-10-10] MEDS: Chlorhexidine Rinse 15 ML MOUTHWASH MM SCH ×2 (09:36→09:40)
[2020-10-10] MEDS: Vasopressin 40 UNIT in D5% in Water 100 ML IVC SCH ×2 (09:37→18:39)
[2020-10-10] MEDS: Dexmedetomidine HCl 400 MCG/100 ML MLS IVC SCH ×2 (09:42→20:05)
[2020-10-10] MEDS ORDERED: Albumin 25% 25gram/100mL 25 GM/100 ML IV.SOLN ONE (11:26)
[2020-10-10] MEDS: Albumin 25% 25gram/100mL 25 GM/100 ML IV.SOLN IVPB SCH ×3 (11:29→15:12)
[2020-10-10] MEDS: Furosemide 40 MG/4 ML VIAL IVP SCH ×3 (12:27→16:56)
[2020-10-10 13:41] LABS: Hematocrit 25.6 % (37.5-50.1); Hemoglobin 8.1 g/dL (12.9-16.9); Mean Corpuscular HGB Conc 31.6 g/dL (31.6-35.5); Mean Corpuscular Hemoglobin 29.1 pg (28.0-33.3); Mean Corpuscular Volume 92.1 fL (83.0-100.0); Mean Platelet Volume 9.9 fL (9.4-12.4); Nucleated Red Blood Cells 0.2 /100 WBC (0); Platelet Count 302 K/mcL (140-400); Red Blood Count 2.78 M/mcL (4.19-5.50); Red Cell Distribution Width 14.6 % (11.5-14.5); White Blood Count 12.2 K/mcL (4.3-11.1)
[2020-10-10 14:21] LABS: Large Platelets Present (Not Present); Monocytes # 0.2 K/mcL (0.0-1.3); Neutrophils # 10.9 K/mcL (1.6-8.9); Platelet Estimate Normal (Normal)
[2020-10-10 14:22] LABS: Toxic Granulation Present (Not Present)
[2020-10-10] MEDS ORDERED: Clinimix E 5%-20% SOLUTION 2,000 ML with MVI, adult with vitamin K 10 ML, Trace Eleme... IVC SCH (17:00)
[2020-10-10] MEDS: Silvasorb 44.4 ML TUBE TP SCH (18:30)
[2020-10-10] MEDS: Micafungin 100 MG in 0.9 % Sodium Chloride Mini Bag 100 ML IVPB SCH (21:16)
[2020-10-11 03:45] LABS: VBG Ionized Calcium 1.16 mmol/L (1.15-1.35)
[2020-10-11] MEDS: Insulin LISPRO 300 UNITS/3 ML VIAL SQ SCH ×6 (03:45→23:21)
[2020-10-11] MEDS: Artificial Tears SOLN 15 ML BOTTLE BOTH EYES SCH ×4 (03:45→15:20)
[2020-10-11 04:02] LABS: Magnesium 1.7 mg/dL (1.6-2.6); Phosphorous 2.6 mg/dL (2.7-4.5)
[2020-10-11 04:11] LABS: Alanine Aminotransferase 17 Units/L (7-52); Albumin 2.9 g/dL (3.5-5.7); Albumin/Globulin Ratio 1.2 (1.1-2.2); Alkaline Phosphatase 55 Units/L (34-104); Aspartate Amino Transferase 21 Units/L (13-39); BUN/Creatinine Ratio 70 (6-26); Bilirubin,Total 2.1 mg/dL (0.3-1.0); Blood Urea Nitrogen 33 mg/dL (8-23); Carbon Dioxide 37 mEq/L (23-29); Chloride 98 mEq/L (98-107); Globulin 2.5 g/dL (2.4-3.5); Glucose 141 mg/dL (70-105); Osmolality,Calculated 302 (280-300); Potassium 3.1 mEq/L (3.5-5.1); Sodium 141 mEq/L (136-145); Total Protein 5.4 g/dL (6.4-8.9); eGFR For African Americans > 60 (> 60); eGFR For Non-African Americans > 60 (> 60)
[2020-10-11] MEDS: Potassium Chloride 40 MEQ/200 ML BAG IVPB PRN (04:29)
[2020-10-11] MEDS: D10% in Water 500 ML IVC SCH ×4 (04:30→19:34)
[2020-10-11 05:24] LABS: ABG Base Excess 15 mEq/L (-2 to 3); ABG HCO3 38 mEq/L (21-27); ABG Oxygen Saturation 98 % (95-98); ABG PCO2 42 mmHg (35-45); ABG PH 7.57 pH Units (7.32-7.45); ABG PO2 89 mmHg (85-104); ABG TCO2 40 mEq/L (20-26); Blood Gas VT 500 cc
[2020-10-11] MEDS: *HR* Heparin 5,000 UNIT/ML VIAL SQ SCH ×2 (05:28→17:59)
[2020-10-11] MEDS: Pantoprazole 40 MG VIAL IVP SCH ×2 (05:28→18:00)
[2020-10-11 08:43] LABS: Basophils # 0.1 K/mcL (0.0-0.2); Basophils % 0.3 %; Eosinophils # 0.1 K/mcL (0.0-0.6); Eosinophils % 0.6 %; Hematocrit 27.1 % (37.5-50.1); Hemoglobin 8.4 g/dL (12.9-16.9); Immature Granulocytes % 1.4 % (0-4); Lymphocytes % 6.7 %; Mean Corpuscular Hemoglobin 28.4 pg (28.0-33.3); Mean Corpuscular Volume 91.6 fL (83.0-100.0); Monocytes # 0.5 K/mcL (0.0-1.3); Monocytes % 3.6 %; Neutrophils # 12.6 K/mcL (1.6-8.9); Nucleated Red Blood Cells 0.1 /100 WBC (0); Platelet Count 343 K/mcL (140-400); Red Blood Count 2.96 M/mcL (4.19-5.50); Red Cell Distribution Width 14.5 % (11.5-14.5); Segmented Neutrophils % 87.4 %; White Blood Count 14.5 K/mcL (4.3-11.1)
[2020-10-11] MEDS: Meropenem 1,000 MG in 0.9 % Sodium Chloride Mini Bag 100 ML IVPB SCH ×3 (08:47→23:23)
[2020-10-11] MEDS: Chlorhexidine Rinse 15 ML MOUTHWASH MM SCH (08:47)
[2020-10-11] MEDS: Dexmedetomidine HCl 400 MCG/100 ML MLS IVC SCH ×2 (08:49→18:00)
[2020-10-11] MEDS: Silvasorb 44.4 ML TUBE TP SCH (13:50)
[2020-10-11] MEDS: Vasopressin 40 UNIT in D5% in Water 100 ML IVC SCH (13:51)
[2020-10-11] MEDS ORDERED: Lidocaine -MPF 1% 5 ML AMPUL INFILT ONE (16:56)
[2020-10-11 17:01] LABS: Magnesium 1.8 mg/dL (1.6-2.6); Phosphorous 4.5 mg/dL (2.7-4.5); Potassium 3.6 mEq/L (3.5-5.1)
[2020-10-11] MEDS: Micafungin 100 MG in 0.9 % Sodium Chloride Mini Bag 100 ML IVPB SCH (20:22)
[2020-10-12] MEDS ORDERED: *HR* Atropine Sulfate 1 MG/10 ML SYRINGE ONE (03:08)
[2020-10-12 03:36] LABS: ABG Base Excess 9 mEq/L (-2 to 3); ABG HCO3 39 mEq/L (21-27); ABG Oxygen Saturation 77 % (95-98); ABG PCO2 101 mmHg (35-45); ABG PO2 54 mmHg (85-104); ABG TCO2 42 mEq/L (20-26)
[2020-10-12] MEDS: Insulin LISPRO 300 UNITS/3 ML VIAL SQ SCH ×5 (03:39→19:42)
[2020-10-12] MEDS: Norepinephrine 4 MG/254 ML IV.SOLN IVC SCH (03:42)
[2020-10-12 04:20] LABS: Basophils % 0.2 %; Eosinophils # 0.1 K/mcL (0.0-0.6); Eosinophils % 0.5 %; Hematocrit 26.3 % (37.5-50.1); Hemoglobin 7.9 g/dL (12.9-16.9); Immature Granulocytes % 1.1 % (0-4); Lymphocytes # 0.7 K/mcL (0.6-4.6); Lymphocytes % 4.9 %; Mean Corpuscular Hemoglobin 28.3 pg (28.0-33.3); Mean Corpuscular Volume 94.3 fL (83.0-100.0); Mean Platelet Volume 9.7 fL (9.4-12.4); Monocytes # 0.6 K/mcL (0.0-1.3); Monocytes % 3.8 %; Neutrophils # 13.3 K/mcL (1.6-8.9); Platelet Count 381 K/mcL (140-400); Red Blood Count 2.79 M/mcL (4.19-5.50); Red Cell Distribution Width 14.5 % (11.5-14.5); Segmented Neutrophils % 89.5 %; White Blood Count 14.8 K/mcL (4.3-11.1)
[2020-10-12 04:33] LABS: VBG Ionized Calcium 1.12 mmol/L (1.15-1.35)
[2020-10-12 04:41] LABS: BUN/Creatinine Ratio 79 (6-26); Blood Urea Nitrogen 31 mg/dL (8-23); Carbon Dioxide 36 mEq/L (23-29); Chloride 102 mEq/L (98-107); Glucose 111 mg/dL (70-105); Magnesium 1.7 mg/dL (1.6-2.6); Osmolality,Calculated 301 (280-300); Phosphorous 3.9 mg/dL (2.7-4.5); Potassium 3.7 mEq/L (3.5-5.1); Sodium 142 mEq/L (136-145); eGFR For African Americans > 60 (> 60); eGFR For Non-African Americans > 60 (> 60)
[2020-10-12] MEDS: Potassium Chloride 40 MEQ/200 ML BAG IVPB PRN (04:49)
[2020-10-12] MEDS: Pantoprazole 40 MG VIAL IVP SCH ×2 (04:50→16:25)
[2020-10-12] MEDS: *HR* Heparin 5,000 UNIT/ML VIAL SQ SCH ×2 (04:50→16:25)
[2020-10-12 04:55] LABS: ABG Base Excess 10 mEq/L (-2 to 3); ABG HCO3 38 mEq/L (21-27); ABG Oxygen Saturation 100 % (95-98); ABG PCO2 67 mmHg (35-45); ABG PH 7.36 pH Units (7.32-7.45); ABG PO2 185 mmHg (85-104); ABG TCO2 40 mEq/L (20-26); Blood Gas VT 500 cc
[2020-10-12] MEDS: Dexmedetomidine HCl 400 MCG/100 ML MLS IVC SCH (09:10)
[2020-10-12] MEDS: Meropenem 1,000 MG in 0.9 % Sodium Chloride Mini Bag 100 ML IVPB SCH (09:10)
[2020-10-12] MEDS: Silvasorb 44.4 ML TUBE TP SCH (09:14)
[2020-10-12] MEDS ORDERED: *HR* Atropine Sulfate 1 MG/10 ML SYRINGE IV ONE (11:08)
[2020-10-12 11:39] LABS: Adenovirus Not Detected (Not Detect); Bordetella Pertussis Not Detected (Not Detect); Chlamydophila pneumoniae Not Detected (Not Detect); Coronavirus 229E Not Detected (Not Detect); Coronavirus HKU1 Not Detected (Not Detect); Coronavirus NL63 Not Detected (Not Detect); Coronavirus OC43 Not Detected (Not Detect); Human Metapneumovirus Not Detected (Not Detect); Human Rhinovirus/Enterovirus Not Detected (Not Detect); Influenza A Subtype 2009 H1 Not Detected (Not Detect); Influenza B Not Detected (Not Detect); Mycoplasma pneumoniae Not Detected (Not Detect); Parainfluenza Virus 1 Not Detected (Not Detect); Parainfluenza Virus 2 Not Detected (Not Detect); Parainfluenza Virus 3 Not Detected (Not Detect); Parainfluenza Virus 4 Not Detected (Not Detect); Respiratory Syncytial Virus Not Detected (Not Detect); SARS-CoV-2 Not Detected (Not Detect)
[2020-10-12] MEDS ORDERED: Lidocaine Viscous Oral Soln 15 ML SOLUTION ONE (11:55)
[2020-10-12] MEDS ORDERED: *HR* Midazolam HCl 5 MG/5 ML VIAL IVP ONE ×2 (12:11→12:15)
[2020-10-12] MEDS ORDERED: *HR* EPINEPHrine 1 MG/10 ML SYRINGE INTRATRACH PRN (13:06)
[2020-10-12] MEDS ORDERED: *HR* EPINEPHrine 1 MG/10 ML SYRINGE ONE (13:12)
[2020-10-12] MEDS ORDERED: Colistin (Colistimethate) 300 MG in 0.9 % Sodium Chloride 50 ML IVPB ONE (15:00)
[2020-10-12] MEDS: Cefepime HCl 2,000 MG in Water for inj. (sterile) 20 ML IVP SCH (16:24)
[2020-10-12] MEDS: Fluconazole 400 MG/200 ML 400 MG/200 ML BAG IVPB SCH (16:25)
[2020-10-12] MEDS: D10% in Water 500 ML IVC SCH (19:37)
[2020-10-12] MEDS: Vasopressin 40 UNIT in D5% in Water 100 ML IVC SCH (19:38)
[2020-10-13] MEDS: Insulin LISPRO 300 UNITS/3 ML VIAL SQ SCH ×3 (00:14→08:54)
[2020-10-13] MEDS: Cefepime HCl 2,000 MG in Water for inj. (sterile) 20 ML IVP SCH ×3 (00:14→14:47)
[2020-10-13] MEDS: D10% in Water 500 ML IVC SCH ×5 (00:14→20:06)
[2020-10-13] MEDS: Colistin (Colistimethate) 180 MG in 0.9 % Sodium Chloride 50 ML IVPB SCH ×2 (03:23→14:46)
[2020-10-13 03:44] LABS: Basophils % 0.2 %; Eosinophils # 0.1 K/mcL (0.0-0.6); Eosinophils % 0.4 %; Hematocrit 29.1 % (37.5-50.1); Hemoglobin 8.8 g/dL (12.9-16.9); Immature Granulocytes % 1.1 % (0-4); Lymphocytes # 0.9 K/mcL (0.6-4.6); Lymphocytes % 5.3 %; Mean Corpuscular HGB Conc 30.2 g/dL (31.6-35.5); Mean Corpuscular Hemoglobin 28.4 pg (28.0-33.3); Mean Corpuscular Volume 93.9 fL (83.0-100.0); Mean Platelet Volume 9.7 fL (9.4-12.4); Monocytes # 0.6 K/mcL (0.0-1.3); Monocytes % 3.3 %; Neutrophils # 15.6 K/mcL (1.6-8.9); Platelet Count 416 K/mcL (140-400); Red Cell Distribution Width 14.6 % (11.5-14.5); Segmented Neutrophils % 89.7 %; White Blood Count 17.4 K/mcL (4.3-11.1)
[2020-10-13] MEDS: Vasopressin 40 UNIT in D5% in Water 100 ML IVC SCH (03:46)
[2020-10-13 03:58] LABS: BUN/Creatinine Ratio 110 (6-26); Blood Urea Nitrogen 33 mg/dL (8-23); Calcium 8.2 mg/dL (8.6-10.3); Carbon Dioxide 35 mEq/L (23-29); Chloride 105 mEq/L (98-107); Glucose 72 mg/dL (70-105); Magnesium 1.8 mg/dL (1.6-2.6); Osmolality,Calculated 304 (280-300); Phosphorous 2.9 mg/dL (2.7-4.5); Potassium 3.9 mEq/L (3.5-5.1); Sodium 144 mEq/L (136-145); eGFR For African Americans > 60 (> 60); eGFR For Non-African Americans > 60 (> 60)
[2020-10-13 04:06] LABS: VBG Ionized Calcium 1.21 mmol/L (1.15-1.35)
[2020-10-13] MEDS: Potassium Chloride 40 MEQ/200 ML BAG IVPB PRN (04:16)
[2020-10-13 05:02] LABS: ABG Base Excess 7 mEq/L (-2 to 3); ABG HCO3 34 mEq/L (21-27); ABG Oxygen Saturation 98 % (95-98); ABG PCO2 65 mmHg (35-45); ABG PH 7.33 pH Units (7.32-7.45); ABG PO2 116 mmHg (85-104); ABG TCO2 36 mEq/L (20-26)
[2020-10-13] MEDS: *HR* Heparin 5,000 UNIT/ML VIAL SQ SCH ×2 (05:02→18:01)
[2020-10-13] MEDS: Pantoprazole 40 MG VIAL IVP SCH ×2 (05:02→18:02)
[2020-10-13 09:23] LABS: RVP Body Fluid Source BAL
[2020-10-13 09:46] LABS: Influenza A PCR Body Fluid INVALID; Influenza B PCR Body Fluid INVALID; RSV PCR Body Fluid INVALID
[2020-10-13] MEDS: Silvasorb 44.4 ML TUBE TP SCH (10:11)
[2020-10-13] MEDS ORDERED: Metoclopramide 10 MG/2 ML VIAL IVP PRN (11:01)
[2020-10-13] MEDS: Bisacodyl 10 MG RECTAL SUPPOSITORY RC SCH (14:43)
[2020-10-13] MEDS: Fluconazole 400 MG/200 ML 400 MG/200 ML BAG IVPB SCH (18:01)
[2020-10-13] MEDS: Metoclopramide 10 MG/2 ML VIAL IVP SCH (18:02)
[2020-10-14] MEDS: Cefepime HCl 2,000 MG in Water for inj. (sterile) 20 ML IVP SCH ×4 (00:45→23:42)
[2020-10-14] MEDS: Metoclopramide 10 MG/2 ML VIAL IVP SCH ×5 (00:45→23:42)
[2020-10-14] MEDS: *HR* Dextrose 50 % in Water (Vial) 50 ML VIAL IVP PRN (01:05)
[2020-10-14] MEDS: Colistin (Colistimethate) 180 MG in 0.9 % Sodium Chloride 50 ML IVPB SCH ×2 (03:28→16:56)
[2020-10-14] MEDS: D10% in Water 500 ML IVC SCH ×4 (03:30→22:01)
[2020-10-14] MEDS: Vasopressin 40 UNIT in D5% in Water 100 ML IVC SCH (03:30)
[2020-10-14 03:31] LABS: Basophils # 0.1 K/mcL (0.0-0.2); Basophils % 0.3 %; Eosinophils # 0.1 K/mcL (0.0-0.6); Eosinophils % 0.6 %; Hematocrit 28.1 % (37.5-50.1); Hemoglobin 8.5 g/dL (12.9-16.9); Immature Granulocytes % 0.7 % (0-4); Lymphocytes # 0.9 K/mcL (0.6-4.6); Lymphocytes % 4.7 %; Mean Corpuscular HGB Conc 30.2 g/dL (31.6-35.5); Mean Corpuscular Volume 95.9 fL (83.0-100.0); Mean Platelet Volume 9.7 fL (9.4-12.4); Monocytes # 0.6 K/mcL (0.0-1.3); Monocytes % 3.5 %; Neutrophils # 16.6 K/mcL (1.6-8.9); Platelet Count 411 K/mcL (140-400); Red Blood Count 2.93 M/mcL (4.19-5.50); Red Cell Distribution Width 14.7 % (11.5-14.5); Segmented Neutrophils % 90.2 %; White Blood Count 18.4 K/mcL (4.3-11.1)
[2020-10-14 03:35] LABS: VBG Ionized Calcium 1.24 mmol/L (1.15-1.35)
[2020-10-14 03:49] LABS: BUN/Creatinine Ratio 83 (6-26); Blood Urea Nitrogen 39 mg/dL (8-23); Calcium 8.4 mg/dL (8.6-10.3); Carbon Dioxide 37 mEq/L (23-29); Chloride 106 mEq/L (98-107); Glucose 98 mg/dL (70-105); Magnesium 2.1 mg/dL (1.6-2.6); Osmolality,Calculated 307 (280-300); Phosphorous 2.5 mg/dL (2.7-4.5); Potassium 4.2 mEq/L (3.5-5.1); Sodium 144 mEq/L (136-145); eGFR For African Americans > 60 (> 60); eGFR For Non-African Americans > 60 (> 60)
[2020-10-14] MEDS: *HR* Heparin 5,000 UNIT/ML VIAL SQ SCH ×2 (05:27→17:15)
[2020-10-14] MEDS: Pantoprazole 40 MG VIAL IVP SCH ×2 (05:27→16:54)
[2020-10-14] MEDS: Bisacodyl 10 MG RECTAL SUPPOSITORY RC SCH (08:34)
[2020-10-14] MEDS: Silvasorb 44.4 ML TUBE TP SCH (08:37)
[2020-10-14] MEDS: Fluconazole 400 MG/200 ML 400 MG/200 ML BAG IVPB SCH (16:53)
[2020-10-14] MEDS ORDERED: Albumin Human 5% 12.5 GM/250 ML IV.SOLN IVPB ONE (20:53)
[2020-10-14] MEDS: Norepinephrine 4 MG/254 ML IV.SOLN IVC SCH (21:59)
[2020-10-15 03:02] LABS: ABG Base Excess 5 mEq/L (-2 to 3); ABG HCO3 37 mEq/L (21-27); ABG Oxygen Saturation 97 % (95-98); ABG PCO2 117 mmHg (35-45); ABG PH 7.11 pH Units (7.32-7.45); ABG PO2 132 mmHg (85-104); ABG TCO2 40 mEq/L (20-26); Blood Gas VT 500 cc
[2020-10-15] MEDS: Norepinephrine 4 MG/254 ML IV.SOLN IVC SCH (03:05)
[2020-10-15] MEDS: Colistin (Colistimethate) 180 MG in 0.9 % Sodium Chloride 50 ML IVPB SCH ×2 (03:05→17:25)
[2020-10-15] MEDS: D10% in Water 500 ML IVC SCH ×4 (03:10→23:52)
[2020-10-15 04:13] LABS: ABG Base Excess 8 mEq/L (-2 to 3); ABG HCO3 37 mEq/L (21-27); ABG Oxygen Saturation 100 % (95-98); ABG PCO2 90 mmHg (35-45); ABG PH 7.23 pH Units (7.32-7.45); ABG PO2 320 mmHg (85-104); ABG TCO2 40 mEq/L (20-26); Blood Gas Modality AVAPS; Blood Gas VT 500 cc
[2020-10-15 04:24] LABS: Basophils # 0.1 K/mcL (0.0-0.2); Basophils % 0.4 %; Eosinophils # 0.2 K/mcL (0.0-0.6); Eosinophils % 0.9 %; Hematocrit 29.1 % (37.5-50.1); Hemoglobin 8.5 g/dL (12.9-16.9); Immature Granulocytes % 0.6 % (0-4); Lymphocytes # 1.1 K/mcL (0.6-4.6); Lymphocytes % 6.8 %; Mean Corpuscular HGB Conc 29.2 g/dL (31.6-35.5); Mean Corpuscular Hemoglobin 29.2 pg (28.0-33.3); Monocytes # 0.6 K/mcL (0.0-1.3); Monocytes % 3.8 %; Neutrophils # 13.9 K/mcL (1.6-8.9); Platelet Count 410 K/mcL (140-400); Red Blood Count 2.91 M/mcL (4.19-5.50); Red Cell Distribution Width 15.1 % (11.5-14.5); Segmented Neutrophils % 87.5 %; White Blood Count 15.9 K/mcL (4.3-11.1)
[2020-10-15 04:36] LABS: VBG Ionized Calcium 1.22 mmol/L (1.15-1.35)
[2020-10-15 04:42] LABS: BUN/Creatinine Ratio 53 (6-26); Blood Urea Nitrogen 38 mg/dL (8-23); Calcium 8.8 mg/dL (8.6-10.3); Carbon Dioxide 34 mEq/L (23-29); Chloride 108 mEq/L (98-107); Glucose 86 mg/dL (70-105); Magnesium 1.7 mg/dL (1.6-2.6); Osmolality,Calculated 310 (280-300); Phosphorous 6.3 mg/dL (2.7-4.5); Potassium 4.1 mEq/L (3.5-5.1); Sodium 146 mEq/L (136-145); eGFR For African Americans > 60 (> 60); eGFR For Non-African Americans > 60 (> 60)
[2020-10-15] MEDS: *HR* Heparin 5,000 UNIT/ML VIAL SQ SCH ×2 (05:26→17:27)
[2020-10-15] MEDS: Pantoprazole 40 MG VIAL IVP SCH (05:26)
[2020-10-15] MEDS: Metoclopramide 10 MG/2 ML VIAL IVP SCH ×4 (05:26→23:09)
[2020-10-15] MEDS: Cefepime HCl 2,000 MG in Water for inj. (sterile) 20 ML IVP SCH ×3 (08:58→23:08)
[2020-10-15] MEDS: Bisacodyl 10 MG RECTAL SUPPOSITORY RC SCH (08:59)
[2020-10-15] MEDS: Silvasorb 44.4 ML TUBE TP SCH (09:01)
[2020-10-15] MEDS: Fluconazole 400 MG/200 ML 400 MG/200 ML BAG IVPB SCH (17:25)
[2020-10-15] MEDS: *HR* Dextrose 50 % in Water (Vial) 50 ML VIAL IVP PRN ×2 (20:05→23:40)
[2020-10-15] MEDS: Dexmedetomidine HCl 400 MCG/100 ML MLS IVC SCH (21:56)
[2020-10-15] MEDS: D5% in Water 1,000 ML IVC PRN (23:40)
[2020-10-16] MEDS ORDERED: Amiodarone Premix 150 MG/100 ML BAG IVPB ONE (03:09)
[2020-10-16] MEDS ORDERED: Amiodarone Premix 360 MG/200 ML BAG IVC ONE (03:15)
[2020-10-16 03:20] LABS: Basophils % 0.7 %; Hemoglobin 8.7 g/dL (12.9-16.9); Red Cell Distribution Width 15.3 % (11.5-14.5)
[2020-10-16 03:21] LABS: Basophils # 0.1 K/mcL (0.0-0.2); Eosinophils # 0.2 K/mcL (0.0-0.6); Eosinophils % 1.1 %; Hematocrit 30.1 % (37.5-50.1); Immature Granulocytes % 1.9 % (0-4); Lymphocytes # 3.8 K/mcL (0.6-4.6); Lymphocytes % 25.5 %; Mean Corpuscular HGB Conc 28.9 g/dL (31.6-35.5); Mean Corpuscular Hemoglobin 29.1 pg (28.0-33.3); Mean Corpuscular Volume 100.7 fL (83.0-100.0); Mean Platelet Volume 10.1 fL (9.4-12.4); Monocytes # 0.8 K/mcL (0.0-1.3); Monocytes % 5.3 %; Platelet Count 399 K/mcL (140-400); Red Blood Count 2.99 M/mcL (4.19-5.50); Segmented Neutrophils % 65.5 %; White Blood Count 14.9 K/mcL (4.3-11.1)
[2020-10-16 03:22] LABS: Neutrophils # 9.8 K/mcL (1.6-8.9)
[2020-10-16 03:28] LABS: ABG Base Excess 0 mEq/L (-2 to 3); ABG HCO3 29 mEq/L (21-27); ABG Oxygen Saturation 100 % (95-98); ABG PCO2 77 mmHg (35-45); ABG PH 7.18 pH Units (7.32-7.45); ABG PO2 285 mmHg (85-104); ABG TCO2 31 mEq/L (20-26); Blood Gas VT 450 cc
[2020-10-16 03:38] LABS: Platelet Estimate Normal (Normal)
[2020-10-16 03:45] LABS: Alanine Aminotransferase 19 Units/L (7-52); Albumin 2.3 g/dL (3.5-5.7); Albumin/Globulin Ratio 0.8 (1.1-2.2); Alkaline Phosphatase 68 Units/L (34-104); Aspartate Amino Transferase 24 Units/L (13-39); BUN/Creatinine Ratio 37 (6-26); Bilirubin,Total 0.5 mg/dL (0.3-1.0); Blood Urea Nitrogen 41 mg/dL (8-23); Calcium 8.8 mg/dL (8.6-10.3); Carbon Dioxide 28 mEq/L (23-29); Chloride 108 mEq/L (98-107); Globulin 2.8 g/dL (2.4-3.5); Glucose 150 mg/dL (70-105); Magnesium 2.3 mg/dL (1.6-2.6); Osmolality,Calculated 313 (280-300); Phosphorous 6.5 mg/dL (2.7-4.5); Potassium 4.6 mEq/L (3.5-5.1); Sodium 145 mEq/L (136-145); Total Protein 5.1 g/dL (6.4-8.9); Troponin I 0.17 ng/mL (< 0.04); eGFR For African Americans > 60 (> 60); eGFR For Non-African Americans > 60 (> 60)
[2020-10-16] MEDS: Dexmedetomidine HCl 400 MCG/100 ML MLS IVC SCH ×2 (04:30→16:26)
[2020-10-16] MEDS: Colistin (Colistimethate) 180 MG in 0.9 % Sodium Chloride 50 ML IVPB SCH ×2 (04:32→15:25)
[2020-10-16] MEDS: FentaNYL (PF) 1,000 MCG/100 ML IV.SOLN IVC SCH (05:50)
[2020-10-16] MEDS: *HR* Heparin 5,000 UNIT/ML VIAL SQ SCH ×2 (06:20→17:10)
[2020-10-16] MEDS: Metoclopramide 10 MG/2 ML VIAL IVP SCH ×4 (06:20→23:05)
[2020-10-16] MEDS: Cefepime HCl 2,000 MG in Water for inj. (sterile) 20 ML IVP SCH ×3 (08:35→23:04)
[2020-10-16] MEDS: Silvasorb 44.4 ML TUBE TP SCH (08:40)
[2020-10-16] MEDS: Bisacodyl 10 MG RECTAL SUPPOSITORY RC SCH (08:43)
[2020-10-16] MEDS: D5% in Water 1,000 ML IVC PRN ×2 (10:00→20:34)
[2020-10-16] MEDS: Norepinephrine 4 MG/254 ML IV.SOLN IVC SCH (11:30)
[2020-10-16] MEDS: Amiodarone Premix 360 MG/200 ML BAG IVC SCH (11:40)
[2020-10-16] MEDS: D10% in Water 500 ML IVC SCH ×4 (11:40→23:07)
[2020-10-16 11:57] LABS: ABG Base Excess 7 mEq/L (-2 to 3); ABG HCO3 31 mEq/L (21-27); ABG Oxygen Saturation 97 % (95-98); ABG PCO2 37 mmHg (35-45); ABG PH 7.53 pH Units (7.32-7.45); ABG PO2 79 mmHg (85-104); ABG TCO2 32 mEq/L (20-26); Blood Gas Modality ASSIST CONTROL; Blood Gas VT 450 cc
[2020-10-16] MEDS: Artificial Tears SOLN 15 ML BOTTLE BOTH EYES PRN ×2 (12:22→15:26)
[2020-10-16] MEDS ORDERED: *HR* EPINEPHrine 1 MG/10 ML SYRINGE IVP ONE (16:18)
[2020-10-16] MEDS: Fluconazole 400 MG/200 ML 400 MG/200 ML BAG IVPB SCH (17:04)
[2020-10-16] MEDS: Chlorhexidine Rinse 15 ML MOUTHWASH MM SCH (20:35)
[2020-10-16] MEDS: Artificial Tears SOLN 15 ML BOTTLE BOTH EYES SCH ×2 (20:35→23:07)
[2020-10-17] MEDS: Norepinephrine 4 MG/254 ML IV.SOLN IVC SCH ×2 (01:51→15:09)
[2020-10-17] MEDS: Colistin (Colistimethate) 180 MG in 0.9 % Sodium Chloride 50 ML IVPB SCH ×2 (03:08→15:41)
[2020-10-17] MEDS: Artificial Tears SOLN 15 ML BOTTLE BOTH EYES SCH ×6 (03:08→23:35)
[2020-10-17] MEDS: FentaNYL (PF) 1,000 MCG/100 ML IV.SOLN IVC SCH (03:10)
[2020-10-17] MEDS: D10% in Water 500 ML IVC SCH ×4 (03:10→23:35)
[2020-10-17 03:45] LABS: VBG Ionized Calcium 1.14 mmol/L (1.15-1.35)
[2020-10-17 03:54] LABS: Magnesium 1.6 mg/dL (1.6-2.6); Phosphorous 3.9 mg/dL (2.7-4.5)
[2020-10-17 05:20] LABS: ABG Base Excess 5 mEq/L (-2 to 3); ABG HCO3 31 mEq/L (21-27); ABG Oxygen Saturation 96 % (95-98); ABG PCO2 55 mmHg (35-45); ABG PH 7.36 pH Units (7.32-7.45); ABG PO2 86 mmHg (85-104); ABG TCO2 33 mEq/L (20-26); Blood Gas Modality AF; Blood Gas VT 400 cc
[2020-10-17] MEDS: Metoclopramide 10 MG/2 ML VIAL IVP SCH ×4 (05:42→23:39)
[2020-10-17] MEDS: Dexmedetomidine HCl 400 MCG/100 ML MLS IVC SCH ×2 (05:42→19:50)
[2020-10-17] MEDS: *HR* Heparin 5,000 UNIT/ML VIAL SQ SCH ×2 (05:42→16:44)
[2020-10-17 06:40] LABS: BUN/Creatinine Ratio 32 (6-26); Blood Urea Nitrogen 44 mg/dL (8-23); Calcium 7.9 mg/dL (8.6-10.3); Carbon Dioxide 28 mEq/L (23-29); Chloride 100 mEq/L (98-107); Glucose 103 mg/dL (70-105); Osmolality,Calculated 291 (280-300); Potassium 3.5 mEq/L (3.5-5.1); Sodium 135 mEq/L (136-145); eGFR For African Americans > 60 (> 60); eGFR For Non-African Americans 51 (> 60)
[2020-10-17] MEDS: Potassium Chloride 40 MEQ/200 ML BAG IVPB PRN ×4 (06:49→18:19)
[2020-10-17] MEDS: D5% in Water 1,000 ML IVC PRN ×2 (06:55→17:35)
[2020-10-17 07:02] LABS: Basophils # 0.1 K/mcL (0.0-0.2); Basophils % 0.5 %; Eosinophils # 0.2 K/mcL (0.0-0.6); Eosinophils % 1.7 %; Hematocrit 24.2 % (37.5-50.1); Hemoglobin 7.8 g/dL (12.9-16.9); Immature Granulocytes % 0.7 % (0-4); Lymphocytes # 1.6 K/mcL (0.6-4.6); Lymphocytes % 16.2 %; Mean Corpuscular HGB Conc 32.2 g/dL (31.6-35.5); Mean Corpuscular Hemoglobin 28.5 pg (28.0-33.3); Mean Corpuscular Volume 88.3 fL (83.0-100.0); Mean Platelet Volume 9.7 fL (9.4-12.4); Monocytes # 0.5 K/mcL (0.0-1.3); Monocytes % 5.1 %; Neutrophils # 7.5 K/mcL (1.6-8.9); Platelet Count 348 K/mcL (140-400); Red Blood Count 2.74 M/mcL (4.19-5.50); Segmented Neutrophils % 75.8 %; White Blood Count 9.9 K/mcL (4.3-11.1)
[2020-10-17] MEDS: Cefepime HCl 2,000 MG in Water for inj. (sterile) 20 ML IVP SCH ×3 (08:00→23:39)
[2020-10-17] MEDS: Bisacodyl 10 MG RECTAL SUPPOSITORY RC SCH (08:00)
[2020-10-17] MEDS: Chlorhexidine Rinse 15 ML MOUTHWASH MM SCH ×2 (08:00→20:26)
[2020-10-17] MEDS: Silvasorb 44.4 ML TUBE TP SCH (08:03)
[2020-10-17] MEDS: Amiodarone Premix 360 MG/200 ML BAG IVC SCH (09:51)
[2020-10-17 12:55] LABS: HSV Source BAL
[2020-10-17 14:55] LABS: Magnesium 1.8 mg/dL (1.6-2.6); Potassium 3.8 mEq/L (3.5-5.1)
[2020-10-17] MEDS: Fluconazole 400 MG/200 ML 400 MG/200 ML BAG IVPB SCH (17:36)
[2020-10-17] MEDS: *HR* HYDROmorphone (PF) 1 MG/ML SYRINGE IVP PRN (20:59)
[2020-10-18] MEDS ORDERED: Colistin (Colistimethate) 150 MG in 0.9 % Sodium Chloride 50 ML IVPB SCH (03:00)
[2020-10-18] MEDS: *HR* HYDROmorphone (PF) 1 MG/ML SYRINGE IVP PRN (03:55)
[2020-10-18] MEDS: D5% in Water 1,000 ML IVC PRN (03:55)
[2020-10-18] MEDS: FentaNYL (PF) 1,000 MCG/100 ML IV.SOLN IVC SCH ×3 (03:56→22:18)
[2020-10-18] MEDS: Artificial Tears SOLN 15 ML BOTTLE BOTH EYES SCH ×6 (03:56→23:23)
[2020-10-18 04:22] LABS: ABG Base Excess 2 mEq/L (-2 to 3); ABG HCO3 29 mEq/L (21-27); ABG Oxygen Saturation 99 % (95-98); ABG PCO2 53 mmHg (35-45); ABG PH 7.34 pH Units (7.32-7.45); ABG PO2 141 mmHg (85-104); ABG TCO2 30 mEq/L (20-26); Blood Gas Modality ASSIST CONTROL; Blood Gas Pressure Support 12 cm H2O
[2020-10-18 04:28] LABS: VBG Ionized Calcium 1.18 mmol/L (1.15-1.35)
[2020-10-18 04:28] LABS: Basophils % 0.1 %; Eosinophils # 0.1 K/mcL (0.0-0.6); Eosinophils % 1.4 %; Hematocrit 23.4 % (37.5-50.1); Hemoglobin 7.4 g/dL (12.9-16.9); Immature Granulocytes % 0.4 % (0-4); Lymphocytes % 13.4 %; Mean Corpuscular HGB Conc 31.6 g/dL (31.6-35.5); Mean Corpuscular Hemoglobin 29.1 pg (28.0-33.3); Mean Corpuscular Volume 92.1 fL (83.0-100.0); Monocytes # 0.4 K/mcL (0.0-1.3); Monocytes % 4.6 %; Neutrophils # 6.1 K/mcL (1.6-8.9); Platelet Count 303 K/mcL (140-400); Red Blood Count 2.54 M/mcL (4.19-5.50); Red Cell Distribution Width 15.2 % (11.5-14.5); Segmented Neutrophils % 80.1 %; White Blood Count 7.6 K/mcL (4.3-11.1)
[2020-10-18 04:42] LABS: Albumin 1.9 g/dL (3.5-5.7); Albumin/Globulin Ratio 0.7 (1.1-2.2); Bilirubin,Total 0.5 mg/dL (0.3-1.0); Calcium 7.9 mg/dL (8.6-10.3); Globulin 2.8 g/dL (2.4-3.5); Magnesium 1.9 mg/dL (1.6-2.6); Total Protein 4.7 g/dL (6.4-8.9)
[2020-10-18] MEDS: *HR* Heparin 5,000 UNIT/ML VIAL SQ SCH ×2 (05:28→17:43)
[2020-10-18] MEDS: Metoclopramide 10 MG/2 ML VIAL IVP SCH ×4 (05:29→23:23)
[2020-10-18] MEDS: D10% in Water 500 ML IVC SCH ×4 (05:29→21:12)
[2020-10-18] MEDS: Chlorhexidine Rinse 15 ML MOUTHWASH MM SCH ×2 (07:11→21:14)
[2020-10-18] MEDS: Bisacodyl 10 MG RECTAL SUPPOSITORY RC SCH (07:12)
[2020-10-18] MEDS: Cefepime HCl 2,000 MG in Water for inj. (sterile) 20 ML IVP SCH ×2 (07:12→17:44)
[2020-10-18] MEDS: Silvasorb 44.4 ML TUBE TP SCH (07:13)
[2020-10-18] MEDS: Amiodarone Premix 360 MG/200 ML BAG IVC SCH (07:22)
[2020-10-18] MEDS: Norepinephrine 4 MG/254 ML IV.SOLN IVC SCH (07:41)
[2020-10-18] MEDS: Pantoprazole 40 MG VIAL IVP SCH (12:28)
[2020-10-18] MEDS: Dexmedetomidine HCl 400 MCG/100 ML MLS IVC SCH (13:22)
[2020-10-18] MEDS: Colistin (Colistimethate) 120 MG in 0.9 % Sodium Chloride 50 ML IVPB SCH (14:59)
[2020-10-18] MEDS: Fluconazole 400 MG/200 ML 400 MG/200 ML BAG IVPB SCH (17:44)
[2020-10-19] MEDS: Dexmedetomidine HCl 400 MCG/100 ML MLS IVC SCH ×2 (01:59→19:59)
[2020-10-19] MEDS: Colistin (Colistimethate) 120 MG in 0.9 % Sodium Chloride 50 ML IVPB SCH ×2 (02:28→15:37)
[2020-10-19] MEDS: D10% in Water 500 ML IVC SCH ×2 (02:29→21:10)
[2020-10-19] MEDS: Norepinephrine 4 MG/254 ML IV.SOLN IVC SCH ×3 (03:06→22:21)
[2020-10-19 04:12] LABS: ABG Base Excess 2 mEq/L (-2 to 3); ABG HCO3 29 mEq/L (21-27); ABG Oxygen Saturation 80 % (95-98); ABG PCO2 60 mmHg (35-45); ABG PH 7.29 pH Units (7.32-7.45); ABG PO2 51 mmHg (85-104); ABG TCO2 31 mEq/L (20-26); Blood Gas Modality ASSIST CONTROL; Blood Gas VT 400 cc
[2020-10-19] MEDS: Artificial Tears SOLN 15 ML BOTTLE BOTH EYES SCH ×5 (04:30→20:04)
[2020-10-19 04:56] LABS: Hematocrit 23.2 % (37.5-50.1); Hemoglobin 7.3 g/dL (12.9-16.9); Mean Corpuscular HGB Conc 31.5 g/dL (31.6-35.5); Mean Corpuscular Hemoglobin 28.1 pg (28.0-33.3); Mean Corpuscular Volume 89.2 fL (83.0-100.0); Mean Platelet Volume 10.2 fL (9.4-12.4); Platelet Count 271 K/mcL (140-400); Red Cell Distribution Width 15.3 % (11.5-14.5); White Blood Count 5.7 K/mcL (4.3-11.1)
[2020-10-19 05:02] LABS: Albumin 1.7 g/dL (3.5-5.7); Albumin/Globulin Ratio 0.6 (1.1-2.2); Bilirubin,Total 0.4 mg/dL (0.3-1.0); Calcium 7.9 mg/dL (8.6-10.3); Globulin 2.8 g/dL (2.4-3.5); Potassium 3.8 mEq/L (3.5-5.1); Total Protein 4.5 g/dL (6.4-8.9)
[2020-10-19] MEDS: *HR* Heparin 5,000 UNIT/ML VIAL SQ SCH ×2 (05:21→18:10)
[2020-10-19] MEDS: Metoclopramide 10 MG/2 ML VIAL IVP SCH ×2 (05:21→11:09)
[2020-10-19] MEDS: Cefepime HCl 2,000 MG in Water for inj. (sterile) 20 ML IVP SCH ×2 (05:21→18:10)
[2020-10-19] MEDS: Potassium Chloride 40 MEQ/200 ML BAG IVPB PRN (05:22)
[2020-10-19] MEDS: Bisacodyl 10 MG RECTAL SUPPOSITORY RC SCH (08:10)
[2020-10-19] MEDS: Chlorhexidine Rinse 15 ML MOUTHWASH MM SCH ×2 (08:10→21:09)
[2020-10-19] MEDS: Pantoprazole 40 MG VIAL IVP SCH (08:10)
[2020-10-19] MEDS: Silvasorb 44.4 ML TUBE TP SCH (08:11)
[2020-10-19] MEDS: FentaNYL (PF) 1,000 MCG/100 ML IV.SOLN IVC SCH ×3 (08:33→22:21)
[2020-10-19] MEDS ORDERED: *HR* Rocuronium Bromide 50 MG/5 ML VIAL IVP ONE ×2 (10:41→15:00)
[2020-10-19] MEDS: Amiodarone Premix 360 MG/200 ML BAG IVC SCH (15:46)
[2020-10-19] MEDS: Fluconazole 400 MG/200 ML 400 MG/200 ML BAG IVPB SCH (18:10)
[2020-10-20] MEDS: Artificial Tears SOLN 15 ML BOTTLE BOTH EYES SCH ×11 (00:18→23:39)
[2020-10-20] MEDS: D10% in Water 500 ML IVC SCH ×3 (00:19→04:35)
[2020-10-20] MEDS: Colistin (Colistimethate) 120 MG in 0.9 % Sodium Chloride 50 ML IVPB SCH ×2 (03:08→14:29)
[2020-10-20 03:48] LABS: ABG Base Excess 2 mEq/L (-2 to 3); ABG HCO3 29 mEq/L (21-27); ABG Oxygen Saturation 90 % (95-98); ABG PCO2 57 mmHg (35-45); ABG PH 7.31 pH Units (7.32-7.45); ABG PO2 67 mmHg (85-104); ABG TCO2 30 mEq/L (20-26); Blood Gas Modality AF; Blood Gas VT 400 cc
[2020-10-20] MEDS: Cefepime HCl 2,000 MG in Water for inj. (sterile) 20 ML IVP SCH ×2 (04:09→17:18)
[2020-10-20] MEDS: *HR* Heparin 5,000 UNIT/ML VIAL SQ SCH ×2 (04:09→17:18)
[2020-10-20 04:46] LABS: Basophils % 0.3 %; Eosinophils # 0.2 K/mcL (0.0-0.6); Eosinophils % 3.2 %; Hematocrit 23.1 % (37.5-50.1); Hemoglobin 7.4 g/dL (12.9-16.9); Immature Granulocytes % 0.9 % (0-4); Lymphocytes % 17.2 %; Mean Corpuscular Volume 90.6 fL (83.0-100.0); Mean Platelet Volume 10.2 fL (9.4-12.4); Monocytes # 0.3 K/mcL (0.0-1.3); Monocytes % 5.1 %; Neutrophils # 4.3 K/mcL (1.6-8.9); Platelet Count 248 K/mcL (140-400); Red Blood Count 2.55 M/mcL (4.19-5.50); Red Cell Distribution Width 15.7 % (11.5-14.5); Segmented Neutrophils % 73.3 %; White Blood Count 5.9 K/mcL (4.3-11.1)
[2020-10-20 04:52] LABS: INR 1.6; Prothrombin Time 17.8 Seconds (9.4-12.1)
[2020-10-20 04:55] LABS: Activated Partial Thrombo Time 36.7 Seconds (26.0-36.0)
[2020-10-20 05:09] LABS: Calcium 8.1 mg/dL (8.6-10.3); Potassium 4.1 mEq/L (3.5-5.1)
[2020-10-20] MEDS: FentaNYL (PF) 1,000 MCG/100 ML IV.SOLN IVC SCH ×3 (05:58→22:00)
[2020-10-20] MEDS: Norepinephrine 4 MG/254 ML IV.SOLN IVC SCH ×3 (05:59→14:29)
[2020-10-20] MEDS: Bisacodyl 10 MG RECTAL SUPPOSITORY RC SCH (08:20)
[2020-10-20] MEDS: Chlorhexidine Rinse 15 ML MOUTHWASH MM SCH ×2 (08:20→20:27)
[2020-10-20] MEDS: Pantoprazole 40 MG VIAL IVP SCH (08:21)
[2020-10-20] MEDS: Erythromycin OPTH Oint BOTH EYES SCH ×4 (08:21→20:28)
[2020-10-20] MEDS: Silvasorb 44.4 ML TUBE TP SCH (08:22)
[2020-10-20] MEDS ORDERED: Albumin 25% 25gram/100mL 25 GM/100 ML IV.SOLN IVPB ONE (08:28)
[2020-10-20] MEDS: Amiodarone Premix 360 MG/200 ML BAG IVC SCH (11:21)
[2020-10-20] MEDS: Fluconazole 400 MG/200 ML 400 MG/200 ML BAG IVPB SCH (17:18)
[2020-10-20] MEDS: Norepinephrine 8 MG in 0.9 % Sodium Chloride 250 ML IVC SCH (21:46)
[2020-10-20] MEDS: Dexmedetomidine HCl 400 MCG/100 ML MLS IVC SCH (22:13)
[2020-10-21] MEDS: Colistin (Colistimethate) 120 MG in 0.9 % Sodium Chloride 50 ML IVPB SCH ×2 (03:37→17:04)
[2020-10-21] MEDS: Cefepime HCl 2,000 MG in Water for inj. (sterile) 20 ML IVP SCH ×2 (04:28→17:08)
[2020-10-21] MEDS: Artificial Tears SOLN 15 ML BOTTLE BOTH EYES SCH ×5 (04:29→20:28)
[2020-10-21] MEDS: *HR* Heparin 5,000 UNIT/ML VIAL SQ SCH ×2 (04:29→17:08)
[2020-10-21 05:02] LABS: Hematocrit 22.7 % (37.5-50.1); Hemoglobin 6.9 g/dL (12.9-16.9); Mean Corpuscular HGB Conc 30.4 g/dL (31.6-35.5); Mean Corpuscular Hemoglobin 28.2 pg (28.0-33.3); Mean Corpuscular Volume 92.7 fL (83.0-100.0); Mean Platelet Volume 10.5 fL (9.4-12.4); Platelet Count 215 K/mcL (140-400); Red Blood Count 2.45 M/mcL (4.19-5.50); Red Cell Distribution Width 15.9 % (11.5-14.5)
[2020-10-21 05:11] LABS: ABG Base Excess 2 mEq/L (-2 to 3); ABG HCO3 29 mEq/L (21-27); ABG Oxygen Saturation 89 % (95-98); ABG PCO2 62 mmHg (35-45); ABG PH 7.28 pH Units (7.32-7.45); ABG PO2 64 mmHg (85-104); ABG TCO2 31 mEq/L (20-26); Blood Gas Modality ASSIST CONTROL; Blood Gas VT 400 cc
[2020-10-21 05:13] LABS: Albumin/Globulin Ratio 0.7 (1.1-2.2); Bilirubin,Total 0.3 mg/dL (0.3-1.0); Calcium 8.7 mg/dL (8.6-10.3); Globulin 2.9 g/dL (2.4-3.5); Potassium 4.5 mEq/L (3.5-5.1); Total Protein 4.9 g/dL (6.4-8.9)
[2020-10-21] MEDS: FentaNYL (PF) 1,000 MCG/100 ML IV.SOLN IVC SCH ×2 (07:30→15:50)
[2020-10-21] MEDS: Pantoprazole 40 MG VIAL IVP SCH (08:31)
[2020-10-21] MEDS: Bisacodyl 10 MG RECTAL SUPPOSITORY RC SCH (08:31)
[2020-10-21] MEDS: Chlorhexidine Rinse 15 ML MOUTHWASH MM SCH ×2 (08:31→20:28)
[2020-10-21] MEDS: Erythromycin OPTH Oint BOTH EYES SCH ×4 (08:32→20:29)
[2020-10-21] MEDS: Silvasorb 44.4 ML TUBE TP SCH (08:33)
[2020-10-21] MEDS ORDERED: Clindamycin 900 MG/50 ML 900 MG/50 ML IV.SOLN IVPB SCH (11:00)
[2020-10-21] MEDS: Norepinephrine 8 MG in 0.9 % Sodium Chloride 250 ML IVC SCH (11:04)
[2020-10-21 11:37] LABS: Hematocrit 22.6 % (37.5-50.1); Hemoglobin 6.9 g/dL (12.9-16.9); Mean Corpuscular HGB Conc 30.5 g/dL (31.6-35.5); Mean Corpuscular Hemoglobin 28.5 pg (28.0-33.3); Mean Corpuscular Volume 93.4 fL (83.0-100.0); Mean Platelet Volume 10.6 fL (9.4-12.4); Platelet Count 202 K/mcL (140-400); Red Blood Count 2.42 M/mcL (4.19-5.50); Red Cell Distribution Width 16.3 % (11.5-14.5); White Blood Count 7.1 K/mcL (4.3-11.1)
[2020-10-21 11:57] LABS: INR 1.7; Prothrombin Time 19.3 Seconds (9.4-12.1)
[2020-10-21] MEDS: DAPTOmycin 400 MG in 0.9 % Sodium Chloride 100 ML IVPB SCH (12:30)
[2020-10-21] MEDS ORDERED: Isovue-370 500 ML BOTTLE PO ONE (14:50)
[2020-10-21] MEDS ORDERED: 0.9 % Sodium Chloride 250 ML ONE (16:19)
[2020-10-21] MEDS ORDERED: *HR* Labetalol 20 MG/4 ML SYRINGE IVP PRN (16:58)
[2020-10-21] MEDS ORDERED: *HR* HYDROmorphone (PF) 1 MG/ML SYRINGE IVP PRN (16:58)
[2020-10-21] MEDS ORDERED: Acetaminophen IV 1,000 MG/100 ML BAG IVPB ONE (16:58)
[2020-10-21] MEDS ORDERED: *HR* HYDROmorphone 2 MG TABLET PO PRN (16:58)
[2020-10-21] MEDS: Fluconazole 400 MG/200 ML 400 MG/200 ML BAG IVPB SCH (17:07)
[2020-10-21 18:01] LABS: Albumin 1.8 g/dL (3.5-5.7); Albumin/Globulin Ratio 0.7 (1.1-2.2); Bilirubin,Total 0.3 mg/dL (0.3-1.0); Calcium 8.5 mg/dL (8.6-10.3); Globulin 2.5 g/dL (2.4-3.5); Potassium 4.6 mEq/L (3.5-5.1); Total Protein 4.3 g/dL (6.4-8.9)
[2020-10-22] MEDS: FentaNYL (PF) 1,000 MCG/100 ML IV.SOLN IVC SCH ×4 (00:42→23:45)
[2020-10-22] MEDS: Norepinephrine 8 MG in 0.9 % Sodium Chloride 250 ML IVC SCH ×3 (00:45→23:45)
[2020-10-22] MEDS: Dexmedetomidine HCl 400 MCG/100 ML MLS IVC SCH (03:02)
[2020-10-22 04:30] LABS: Hematocrit 26.8 % (37.5-50.1); Hemoglobin 8.3 g/dL (12.9-16.9); Mean Corpuscular Hemoglobin 27.9 pg (28.0-33.3); Mean Corpuscular Volume 90.2 fL (83.0-100.0); Mean Platelet Volume 10.3 fL (9.4-12.4); Platelet Count 193 K/mcL (140-400); Red Blood Count 2.97 M/mcL (4.19-5.50); Red Cell Distribution Width 16.3 % (11.5-14.5); White Blood Count 7.8 K/mcL (4.3-11.1)
[2020-10-22] MEDS: D5% in Water 1,000 ML IVC PRN (04:37)
[2020-10-22 04:48] LABS: Albumin 1.9 g/dL (3.5-5.7); Albumin/Globulin Ratio 0.7 (1.1-2.2); Bilirubin,Total 0.5 mg/dL (0.3-1.0); Globulin 2.9 g/dL (2.4-3.5); Potassium 4.3 mEq/L (3.5-5.1); Total Protein 4.8 g/dL (6.4-8.9)
[2020-10-22 04:52] LABS: ABG Base Excess 2 mEq/L (-2 to 3); ABG HCO3 28 mEq/L (21-27); ABG Oxygen Saturation 94 % (95-98); ABG PCO2 52 mmHg (35-45); ABG PH 7.34 pH Units (7.32-7.45); ABG PO2 74 mmHg (85-104); ABG TCO2 30 mEq/L (20-26); Blood Gas Modality AF; Blood Gas VT 400 cc
[2020-10-22] MEDS: Artificial Tears SOLN 15 ML BOTTLE BOTH EYES SCH ×7 (05:26→23:39)
[2020-10-22] MEDS: Cefepime HCl 2,000 MG in Water for inj. (sterile) 20 ML IVP SCH ×2 (05:30→18:52)
[2020-10-22] MEDS: Colistin (Colistimethate) 120 MG in 0.9 % Sodium Chloride 50 ML IVPB SCH ×2 (05:31→15:24)
[2020-10-22] MEDS: *HR* Heparin 5,000 UNIT/ML VIAL SQ SCH ×2 (05:43→18:52)
[2020-10-22] MEDS ORDERED: *HR* FentaNYL (PF) 100 MCG/2 ML VIAL ONE (07:54)
[2020-10-22] MEDS ORDERED: Dexamethasone 4 MG/ML VIAL ONE (07:54)
[2020-10-22] MEDS ORDERED: *HR* Rocuronium Bromide 50 MG/5 ML VIAL ONE (07:54)
[2020-10-22] MEDS ORDERED: *HR* Propofol 200 MG/20 ML VIAL IVP ONE ×2 (07:54→07:55)
[2020-10-22] MEDS ORDERED: Lidocaine -MPF 2% 2 ML VIAL ONE ×2 (07:54)
[2020-10-22] MEDS ORDERED: Ondansetron 4 MG/2 ML VIAL ONE (07:54)
[2020-10-22] MEDS ORDERED: *HR* Midazolam HCl 2 MG/2 ML VIAL ONE (07:55)
[2020-10-22] MEDS: Bisacodyl 10 MG RECTAL SUPPOSITORY RC SCH (08:00)
[2020-10-22] MEDS ORDERED: *HR* PHENYLEPHRINE 1,000 MCG/10 ML SYRINGE IVP ONE (08:01)
[2020-10-22] MEDS: Pantoprazole 40 MG VIAL IVP SCH (08:20)
[2020-10-22] MEDS: Chlorhexidine Rinse 15 ML MOUTHWASH MM SCH ×2 (08:20→20:10)
[2020-10-22] MEDS: Erythromycin OPTH Oint BOTH EYES SCH ×4 (08:21→20:10)
[2020-10-22] MEDS: Silvasorb 44.4 ML TUBE TP SCH (08:22)
[2020-10-22 09:48] LABS: Adenovirus Not Detected (Not Detect); Bordetella Pertussis Not Detected (Not Detect); Chlamydophila pneumoniae Not Detected (Not Detect); Coronavirus 229E Not Detected (Not Detect); Coronavirus HKU1 Not Detected (Not Detect); Coronavirus NL63 Not Detected (Not Detect); Coronavirus OC43 Not Detected (Not Detect); Human Metapneumovirus Not Detected (Not Detect); Human Rhinovirus/Enterovirus Not Detected (Not Detect); Influenza A Subtype 2009 H1 Not Detected (Not Detect); Influenza B Not Detected (Not Detect); Mycoplasma pneumoniae Not Detected (Not Detect); Parainfluenza Virus 1 Not Detected (Not Detect); Parainfluenza Virus 2 Not Detected (Not Detect); Parainfluenza Virus 3 Not Detected (Not Detect); Parainfluenza Virus 4 Not Detected (Not Detect); Respiratory Syncytial Virus Not Detected (Not Detect); SARS-CoV-2 Not Detected (Not Detect)
[2020-10-22] MEDS ORDERED: Albumin 25% 25gram/100mL 25 GM/100 ML IV.SOLN IVPB ONE (11:21)
[2020-10-22] MEDS: DAPTOmycin 400 MG in 0.9 % Sodium Chloride 100 ML IVPB SCH (12:23)
[2020-10-22] MEDS: MetroNIDAZOLE 500 MG/100 ML 500 MG/100 ML BAG IVPB SCH ×2 (14:35→23:40)
[2020-10-22] MEDS: Fluconazole 400 MG/200 ML 400 MG/200 ML BAG IVPB SCH (18:52)
[2020-10-22] MEDS: Amiodarone Premix 360 MG/200 ML BAG IVC SCH ×2 (19:33→19:34)
[2020-10-22] MEDS: *HR* Dextrose 50 % in Water (Vial) 50 ML VIAL IVP PRN (20:09)
[2020-10-22 22:36] LABS: Acinetobacter baumannii by PCR Not Detected (Not Detect); Candida albicans by PCR Not Detected (Not Detect); Candida glabrata by PCR Not Detected (Not Detect); Candida krusei by PCR Not Detected (Not Detect); Candida parapsilosis by PCR Not Detected (Not Detect); Candida tropicalis by PCR Not Detected (Not Detect); Enterobacter cloacae Cmplx PCR Not Detected (Not Detect); Enterobacteriaceae by PCR Not Detected (Not Detect); Enterococcus by PCR Not Detected (Not Detect); Escherichia coli by PCR Not Detected (Not Detect); Klebsiella oxytoca by PCR Not Detected (Not Detect); Klebsiella pneumoniae by PCR Not Detected (Not Detect); Proteus by PCR Not Detected (Not Detect); Pseudomonas aeruginosa by PCR Not Detected (Not Detect); Serratia marcescens by PCR Not Detected (Not Detect); Staphylococcus aureus by PCR Not Detected (Not Detect); Staphylococcus by PCR DETECTED (Not Detect); Streptococcus agalactiae(B)PCR Not Detected (Not Detect); Streptococcus by PCR Not Detected (Not Detect); Streptococcus pneumoniae PCR Not Detected (Not Detect); Streptococcus pyogenes (A) PCR Not Detected (Not Detect); blaKPC Carbapenem-Resist Gene Not Detected (Not Detect); mecA Methicillin-Resist Gene DETECTED (Not Detect); vanA/B Vancomycin-Resist Genes Not Detected (Not Detect)
[2020-10-23] MEDS: Colistin (Colistimethate) 120 MG in 0.9 % Sodium Chloride 50 ML IVPB SCH ×2 (03:07→14:46)
[2020-10-23 04:44] LABS: ABG Base Excess 0 mEq/L (-2 to 3); ABG HCO3 26 mEq/L (21-27); ABG Oxygen Saturation 96 % (95-98); ABG PCO2 52 mmHg (35-45); ABG PH 7.31 pH Units (7.32-7.45); ABG PO2 89 mmHg (85-104); ABG TCO2 28 mEq/L (20-26); Blood Gas Modality ASSIST CONTROL; Blood Gas VT 400 cc
[2020-10-23 05:17] LABS: Hematocrit 24.4 % (37.5-50.1); Hemoglobin 7.6 g/dL (12.9-16.9); Mean Corpuscular HGB Conc 31.1 g/dL (31.6-35.5); Mean Corpuscular Hemoglobin 28.4 pg (28.0-33.3); Mean Platelet Volume 10.6 fL (9.4-12.4); Platelet Count 157 K/mcL (140-400); Red Blood Count 2.68 M/mcL (4.19-5.50); Red Cell Distribution Width 16.8 % (11.5-14.5); White Blood Count 6.8 K/mcL (4.3-11.1)
[2020-10-23] MEDS: Artificial Tears SOLN 15 ML BOTTLE BOTH EYES SCH ×5 (05:24→19:45)
[2020-10-23 05:36] LABS: Albumin 2.1 g/dL (3.5-5.7); Albumin/Globulin Ratio 0.8 (1.1-2.2); Bilirubin,Total 0.7 mg/dL (0.3-1.0); Calcium 9.2 mg/dL (8.6-10.3); Globulin 2.6 g/dL (2.4-3.5); Potassium 3.5 mEq/L (3.5-5.1); Total Protein 4.7 g/dL (6.4-8.9)
[2020-10-23] MEDS: Cefepime HCl 2,000 MG in Water for inj. (sterile) 20 ML IVP SCH ×2 (05:53→17:21)
[2020-10-23] MEDS: *HR* Heparin 5,000 UNIT/ML VIAL SQ SCH ×2 (05:53→17:21)
[2020-10-23] MEDS: FentaNYL (PF) 1,000 MCG/100 ML IV.SOLN IVC SCH ×3 (06:01→19:44)
[2020-10-23] MEDS: MetroNIDAZOLE 500 MG/100 ML 500 MG/100 ML BAG IVPB SCH ×2 (08:10→14:47)
[2020-10-23] MEDS: Pantoprazole 40 MG VIAL IVP SCH (08:11)
[2020-10-23] MEDS: Bisacodyl 10 MG RECTAL SUPPOSITORY RC SCH (08:11)
[2020-10-23] MEDS: Chlorhexidine Rinse 15 ML MOUTHWASH MM SCH ×2 (08:11→19:47)
[2020-10-23] MEDS: Amiodarone Premix 360 MG/200 ML BAG IVC SCH (08:12)
[2020-10-23] MEDS: Silvasorb 44.4 ML TUBE TP SCH (08:13)
[2020-10-23] MEDS: Erythromycin OPTH Oint BOTH EYES SCH ×4 (08:13→19:44)
[2020-10-23] MEDS: Dexmedetomidine HCl 400 MCG/100 ML MLS IVC SCH (10:00)
[2020-10-23] MEDS: D5% in 0.45% NACL w KCl 20 MEQ/1,000 ML MLS IVC SCH (11:56)
[2020-10-23] MEDS: DAPTOmycin 400 MG in 0.9 % Sodium Chloride 100 ML IVPB SCH (12:29)
[2020-10-23] MEDS: Norepinephrine 8 MG in 0.9 % Sodium Chloride 250 ML IVC SCH ×2 (14:47→14:50)
[2020-10-23 15:12] LABS: Hematocrit 25.5 % (37.5-50.1); Hemoglobin 7.7 g/dL (12.9-16.9)
[2020-10-23] MEDS: Fluconazole 400 MG/200 ML 400 MG/200 ML BAG IVPB SCH (17:22)
[2020-10-24] MEDS: MetroNIDAZOLE 500 MG/100 ML 500 MG/100 ML BAG IVPB SCH ×4 (00:19→23:13)
[2020-10-24] MEDS: Artificial Tears SOLN 15 ML BOTTLE BOTH EYES SCH ×7 (00:19→23:14)
[2020-10-24] MEDS: FentaNYL (PF) 1,000 MCG/100 ML IV.SOLN IVC SCH ×3 (00:22→14:55)
[2020-10-24] MEDS: Dexmedetomidine HCl 400 MCG/100 ML MLS IVC SCH (00:25)
[2020-10-24] MEDS: D5% in 0.45% NACL w KCl 20 MEQ/1,000 ML MLS IVC SCH ×2 (00:25→14:17)
[2020-10-24 03:48] LABS: Hematocrit 25.6 % (37.5-50.1); Hemoglobin 7.9 g/dL (12.9-16.9); Mean Corpuscular HGB Conc 30.9 g/dL (31.6-35.5); Mean Corpuscular Hemoglobin 28.3 pg (28.0-33.3); Mean Corpuscular Volume 91.8 fL (83.0-100.0); Mean Platelet Volume 10.1 fL (9.4-12.4); Platelet Count 165 K/mcL (140-400); Red Blood Count 2.79 M/mcL (4.19-5.50); Red Cell Distribution Width 16.9 % (11.5-14.5); White Blood Count 7.6 K/mcL (4.3-11.1)
[2020-10-24] MEDS: Colistin (Colistimethate) 120 MG in 0.9 % Sodium Chloride 50 ML IVPB SCH ×2 (04:03→14:43)
[2020-10-24 04:04] LABS: Calcium 9.2 mg/dL (8.6-10.3); Potassium 3.5 mEq/L (3.5-5.1)
[2020-10-24 04:48] LABS: ABG Base Excess -1 mEq/L (-2 to 3); ABG HCO3 25 mEq/L (21-27); ABG Oxygen Saturation 95 % (95-98); ABG PCO2 49 mmHg (35-45); ABG PH 7.32 pH Units (7.32-7.45); ABG PO2 85 mmHg (85-104); ABG TCO2 27 mEq/L (20-26); Blood Gas Modality ASSIST CONTROL; Blood Gas VT 400 cc
[2020-10-24] MEDS: *HR* Heparin 5,000 UNIT/ML VIAL SQ SCH ×2 (06:20→18:26)
[2020-10-24] MEDS: Cefepime HCl 2,000 MG in Water for inj. (sterile) 20 ML IVP SCH ×2 (06:21→18:26)
[2020-10-24] MEDS ORDERED: levETIRAcetam 1,000 MG in 0.9 % Sodium Chloride 100 ML IVPB ONE (06:41)
[2020-10-24] MEDS: Pantoprazole 40 MG VIAL IVP SCH (07:41)
[2020-10-24] MEDS: Chlorhexidine Rinse 15 ML MOUTHWASH MM SCH ×2 (07:41→19:47)
[2020-10-24] MEDS: Silvasorb 44.4 ML TUBE TP SCH (07:42)
[2020-10-24] MEDS: Bisacodyl 10 MG RECTAL SUPPOSITORY RC SCH ×2 (07:42→08:10)
[2020-10-24] MEDS: Erythromycin OPTH Oint BOTH EYES SCH ×4 (09:38→19:48)
[2020-10-24] MEDS: Amiodarone Premix 360 MG/200 ML BAG IVC SCH (12:07)
[2020-10-24] MEDS: DAPTOmycin 400 MG in 0.9 % Sodium Chloride 100 ML IVPB SCH (12:08)
[2020-10-24] MEDS: Potassium Chloride 40 MEQ/200 ML BAG IVPB PRN (14:43)
[2020-10-24] MEDS ORDERED: Isovue-370 500 ML BOTTLE PO ONE (15:15)
[2020-10-24] MEDS ORDERED: Albumin 25% 25gram/100mL 25 GM/100 ML IV.SOLN IVPB ONE (15:23)
[2020-10-24] MEDS: Hydrocortisone Sodium Succ 100 MG/2 ML VIAL IVP SCH ×2 (15:36→23:13)
[2020-10-25] MEDS: FentaNYL (PF) 1,000 MCG/100 ML IV.SOLN IVC SCH ×3 (00:11→19:55)
[2020-10-25] MEDS: Colistin (Colistimethate) 120 MG in 0.9 % Sodium Chloride 50 ML IVPB SCH ×2 (03:27→15:13)
[2020-10-25] MEDS: Artificial Tears SOLN 15 ML BOTTLE BOTH EYES SCH ×6 (03:28→23:38)
[2020-10-25 04:17] LABS: VBG Ionized Calcium 1.37 mmol/L (1.15-1.35)
[2020-10-25 04:23] LABS: Hemoglobin 7.9 g/dL (12.9-16.9); Mean Corpuscular HGB Conc 31.6 g/dL (31.6-35.5); Mean Corpuscular Volume 91.9 fL (83.0-100.0); Platelet Count 205 K/mcL (140-400); Red Blood Count 2.72 M/mcL (4.19-5.50); Red Cell Distribution Width 17.2 % (11.5-14.5); White Blood Count 9.6 K/mcL (4.3-11.1)
[2020-10-25 04:34] LABS: ABG Base Excess -3 mEq/L (-2 to 3); ABG HCO3 24 mEq/L (21-27); ABG Oxygen Saturation 95 % (95-98); ABG PCO2 49 mmHg (35-45); ABG PH 7.29 pH Units (7.32-7.45); ABG PO2 83 mmHg (85-104); ABG TCO2 25 mEq/L (20-26); Blood Gas Modality ASSIST CONTROL; Blood Gas VT 400 cc
[2020-10-25 04:39] LABS: Albumin 2.3 g/dL (3.5-5.7); Albumin/Globulin Ratio 0.9 (1.1-2.2); Bilirubin,Total 0.5 mg/dL (0.3-1.0); Calcium 9.1 mg/dL (8.6-10.3); Globulin 2.7 g/dL (2.4-3.5); Magnesium 1.4 mg/dL (1.6-2.6); Phosphorous 4.4 mg/dL (2.7-4.5); Potassium 4.2 mEq/L (3.5-5.1)
[2020-10-25] MEDS: Cefepime HCl 2,000 MG in Water for inj. (sterile) 20 ML IVP SCH ×2 (04:54→16:59)
[2020-10-25] MEDS: *HR* Heparin 5,000 UNIT/ML VIAL SQ SCH ×2 (04:54→16:59)
[2020-10-25] MEDS: Dexmedetomidine HCl 400 MCG/100 ML MLS IVC SCH ×2 (05:04→20:20)
[2020-10-25] MEDS: Chlorhexidine Rinse 15 ML MOUTHWASH MM SCH ×2 (07:50→20:09)
[2020-10-25] MEDS: Pantoprazole 40 MG VIAL IVP SCH (07:50)
[2020-10-25] MEDS: Hydrocortisone Sodium Succ 100 MG/2 ML VIAL IVP SCH (07:50)
[2020-10-25] MEDS: MetroNIDAZOLE 500 MG/100 ML 500 MG/100 ML BAG IVPB SCH ×3 (07:51→23:49)
[2020-10-25] MEDS: Bisacodyl 10 MG RECTAL SUPPOSITORY RC SCH (07:51)
[2020-10-25] MEDS: Silvasorb 44.4 ML TUBE TP SCH (07:51)
[2020-10-25] MEDS: Erythromycin OPTH Oint BOTH EYES SCH ×4 (07:52→20:09)
[2020-10-25] MEDS: Amiodarone Premix 360 MG/200 ML BAG IVC SCH (08:02)
[2020-10-25] MEDS: DAPTOmycin 400 MG in 0.9 % Sodium Chloride 100 ML IVPB SCH (12:04)
[2020-10-26] MEDS: Norepinephrine 8 MG in 0.9 % Sodium Chloride 250 ML IVC SCH (02:00)
[2020-10-26] MEDS: Colistin (Colistimethate) 120 MG in 0.9 % Sodium Chloride 50 ML IVPB SCH (02:59)
[2020-10-26] MEDS: Artificial Tears SOLN 15 ML BOTTLE BOTH EYES SCH ×5 (03:09→20:39)
[2020-10-26 03:35] LABS: Hematocrit 24.7 % (37.5-50.1); Hemoglobin 7.7 g/dL (12.9-16.9); Mean Corpuscular HGB Conc 31.2 g/dL (31.6-35.5); Mean Corpuscular Hemoglobin 29.1 pg (28.0-33.3); Mean Corpuscular Volume 93.2 fL (83.0-100.0); Mean Platelet Volume 10.7 fL (9.4-12.4); Platelet Count 270 K/mcL (140-400); Red Blood Count 2.65 M/mcL (4.19-5.50); Red Cell Distribution Width 18.2 % (11.5-14.5); White Blood Count 17.6 K/mcL (4.3-11.1)
[2020-10-26 03:42] LABS: VBG Ionized Calcium 1.46 mmol/L (1.15-1.35)
[2020-10-26 03:55] LABS: Calcium 9.3 mg/dL (8.6-10.3); Magnesium 1.7 mg/dL (1.6-2.6); Phosphorous 4.1 mg/dL (2.7-4.5); Potassium 4.9 mEq/L (3.5-5.1)
[2020-10-26 04:06] LABS: ABG Base Excess -2 mEq/L (-2 to 3); ABG HCO3 25 mEq/L (21-27); ABG Oxygen Saturation 92 % (95-98); ABG PCO2 49 mmHg (35-45); ABG PO2 70 mmHg (85-104); ABG TCO2 26 mEq/L (20-26); Blood Gas VT 420 cc
[2020-10-26] MEDS: FentaNYL (PF) 1,000 MCG/100 ML IV.SOLN IVC SCH ×3 (04:17→20:01)
[2020-10-26] MEDS: Cefepime HCl 2,000 MG in Water for inj. (sterile) 20 ML IVP SCH ×2 (06:02→17:38)
[2020-10-26] MEDS: *HR* Heparin 5,000 UNIT/ML VIAL SQ SCH ×2 (06:03→17:38)
[2020-10-26] MEDS: Chlorhexidine Rinse 15 ML MOUTHWASH MM SCH ×2 (07:21→20:37)
[2020-10-26] MEDS: Bisacodyl 10 MG RECTAL SUPPOSITORY RC SCH (07:21)
[2020-10-26] MEDS: Pantoprazole 40 MG VIAL IVP SCH (07:21)
[2020-10-26] MEDS: MetroNIDAZOLE 500 MG/100 ML 500 MG/100 ML BAG IVPB SCH (07:22)
[2020-10-26] MEDS: Silvasorb 44.4 ML TUBE TP SCH (07:23)
[2020-10-26] MEDS: Erythromycin OPTH Oint BOTH EYES SCH ×4 (07:23→20:39)
[2020-10-26] MEDS: Amiodarone Premix 360 MG/200 ML BAG IVC SCH (07:24)
[2020-10-26 09:25] LABS: INR 1.9; Prothrombin Time 21.9 Seconds (9.4-12.1)
[2020-10-26] MEDS: DAPTOmycin 400 MG in 0.9 % Sodium Chloride 100 ML IVPB SCH ×2 (11:24→12:50)
[2020-10-26] MEDS ORDERED: Lidocaine/EPI 1:100k 1% 20 ML VIAL ONE (12:02)
[2020-10-26] MEDS ORDERED: *HR* Propofol 200 MG/20 ML VIAL IVP ONE (12:10)
[2020-10-26] MEDS ORDERED: *HR* FentaNYL (PF) 100 MCG/2 ML VIAL ONE (12:10)
[2020-10-26] MEDS ORDERED: *HR* Rocuronium Bromide 50 MG/5 ML VIAL ONE (12:11)
[2020-10-26] MEDS ORDERED: *HR* PHENYLEPHRINE 1,000 MCG/10 ML SYRINGE IVP ONE (12:12)
[2020-10-26] MEDS ORDERED: *HR* Vasopressin 20 UNIT/ML VIAL ONE (12:17)
[2020-10-26] MEDS ORDERED: Heparin 1,000 UNITS/500 mL 500 ML ONE (12:50)
[2020-10-26] MEDS: Dexmedetomidine HCl 400 MCG/100 ML MLS IVC SCH ×2 (14:36→19:01)
[2020-10-27] MEDS: Artificial Tears SOLN 15 ML BOTTLE BOTH EYES SCH ×7 (00:19→23:21)
[2020-10-27] MEDS: Dexmedetomidine HCl 400 MCG/100 ML MLS IVC SCH ×2 (01:52→17:10)
[2020-10-27 03:38] LABS: Hematocrit 23.4 % (37.5-50.1); Hemoglobin 7.2 g/dL (12.9-16.9); Mean Corpuscular HGB Conc 30.8 g/dL (31.6-35.5); Mean Corpuscular Hemoglobin 28.3 pg (28.0-33.3); Mean Corpuscular Volume 92.1 fL (83.0-100.0); Mean Platelet Volume 10.2 fL (9.4-12.4); Platelet Count 246 K/mcL (140-400); Red Blood Count 2.54 M/mcL (4.19-5.50); Red Cell Distribution Width 18.7 % (11.5-14.5); White Blood Count 9.8 K/mcL (4.3-11.1)
[2020-10-27] MEDS: *HR* Dextrose 50 % in Water (Vial) 50 ML VIAL IVP PRN ×3 (03:40→19:48)
[2020-10-27 03:49] LABS: Calcium 9.4 mg/dL (8.6-10.3); Potassium 4.1 mEq/L (3.5-5.1)
[2020-10-27] MEDS: FentaNYL (PF) 1,000 MCG/100 ML IV.SOLN IVC SCH ×2 (03:56→12:47)
[2020-10-27 04:40] LABS: ABG Base Excess -4 mEq/L (-2 to 3); ABG HCO3 22 mEq/L (21-27); ABG Oxygen Saturation 92 % (95-98); ABG PCO2 43 mmHg (35-45); ABG PH 7.31 pH Units (7.32-7.45); ABG PO2 69 mmHg (85-104); ABG TCO2 23 mEq/L (20-26); Blood Gas VT 420 cc
[2020-10-27] MEDS: *HR* Heparin 5,000 UNIT/ML VIAL SQ SCH ×2 (05:36→17:01)
[2020-10-27] MEDS: Cefepime HCl 2,000 MG in Water for inj. (sterile) 20 ML IVP SCH ×2 (05:37→17:01)
[2020-10-27] MEDS: Bisacodyl 10 MG RECTAL SUPPOSITORY RC SCH (08:24)
[2020-10-27] MEDS: Pantoprazole 40 MG VIAL IVP SCH (08:24)
[2020-10-27] MEDS: Chlorhexidine Rinse 15 ML MOUTHWASH MM SCH ×2 (08:24→19:21)
[2020-10-27] MEDS: Erythromycin OPTH Oint BOTH EYES SCH (08:26)
[2020-10-27] MEDS: Silvasorb 44.4 ML TUBE TP SCH ×2 (08:26)
[2020-10-27] MEDS: DAPTOmycin 400 MG in 0.9 % Sodium Chloride 100 ML IVPB SCH (11:10)
[2020-10-27] MEDS: Norepinephrine 8 MG in 0.9 % Sodium Chloride 250 ML IVC SCH (23:08)
[2020-10-28 03:22] LABS: Hematocrit 24.5 % (37.5-50.1); Hemoglobin 7.6 g/dL (12.9-16.9); Mean Corpuscular Hemoglobin 28.7 pg (28.0-33.3); Mean Corpuscular Volume 92.5 fL (83.0-100.0); Mean Platelet Volume 9.8 fL (9.4-12.4); Platelet Count 276 K/mcL (140-400); Red Blood Count 2.65 M/mcL (4.19-5.50); Red Cell Distribution Width 19.3 % (11.5-14.5)
[2020-10-28 03:23] LABS: White Blood Count 15.1 K/mcL (4.3-11.1)
[2020-10-28] MEDS: Artificial Tears SOLN 15 ML BOTTLE BOTH EYES SCH ×6 (03:23→23:59)
[2020-10-28 03:44] LABS: Calcium 9.4 mg/dL (8.6-10.3); Potassium 3.8 mEq/L (3.5-5.1)
[2020-10-28 04:21] LABS: ABG Base Excess -4 mEq/L (-2 to 3); ABG HCO3 22 mEq/L (21-27); ABG Oxygen Saturation 96 % (95-98); ABG PCO2 41 mmHg (35-45); ABG PH 7.34 pH Units (7.32-7.45); ABG PO2 86 mmHg (85-104); ABG TCO2 23 mEq/L (20-26); Blood Gas VT 420 cc
[2020-10-28] MEDS: Cefepime HCl 2,000 MG in Water for inj. (sterile) 20 ML IVP SCH ×2 (05:43→17:00)
[2020-10-28] MEDS: *HR* Heparin 5,000 UNIT/ML VIAL SQ SCH ×2 (05:44→17:00)
[2020-10-28] MEDS: Bisacodyl 10 MG RECTAL SUPPOSITORY RC SCH (07:21)
[2020-10-28] MEDS: Pantoprazole 40 MG VIAL IVP SCH (07:21)
[2020-10-28] MEDS: Chlorhexidine Rinse 15 ML MOUTHWASH MM SCH ×2 (07:22→19:21)
[2020-10-28] MEDS: Dexmedetomidine HCl 400 MCG/100 ML MLS IVC SCH (09:48)
[2020-10-28] MEDS: levETIRAcetam 750 MG in 0.9 % Sodium Chloride 100 ML IVPB SCH ×2 (10:58→19:21)
[2020-10-28] MEDS: Thiamine (B-1) 100 MG in 0.9 % Sodium Chloride 50 ML IVPB SCH (10:59)
[2020-10-28] MEDS: DAPTOmycin 400 MG in 0.9 % Sodium Chloride 100 ML IVPB SCH (11:36)
[2020-10-28] MEDS ORDERED: Cyanocobalamin (B-12) 1,000 MCG/ML VIAL IM ONE (12:08)
[2020-10-28] MEDS: Silvasorb 44.4 ML TUBE TP SCH (19:22)
[2020-10-29] MEDS: Norepinephrine 8 MG in 0.9 % Sodium Chloride 250 ML IVC SCH ×2 (03:36→18:52)
[2020-10-29] MEDS: Artificial Tears SOLN 15 ML BOTTLE BOTH EYES SCH ×5 (03:38→18:36)
[2020-10-29 03:43] LABS: Basophils # 0.1 K/mcL (0.0-0.2); Basophils % 0.4 %; Eosinophils # 1.1 K/mcL (0.0-0.6); Eosinophils % 9.5 %; Hematocrit 24.7 % (37.5-50.1); Hemoglobin 7.4 g/dL (12.9-16.9); Immature Granulocytes % 0.4 % (0-4); Lymphocytes # 0.9 K/mcL (0.6-4.6); Lymphocytes % 8.2 %; Mean Corpuscular Hemoglobin 28.5 pg (28.0-33.3); Mean Platelet Volume 10.5 fL (9.4-12.4); Monocytes # 0.4 K/mcL (0.0-1.3); Monocytes % 3.9 %; Neutrophils # 8.9 K/mcL (1.6-8.9); Platelet Count 293 K/mcL (140-400); Red Cell Distribution Width 20.4 % (11.5-14.5); Segmented Neutrophils % 77.6 %; White Blood Count 11.4 K/mcL (4.3-11.1)
[2020-10-29 04:06] LABS: Calcium 9.3 mg/dL (8.6-10.3); Potassium 3.4 mEq/L (3.5-5.1)
[2020-10-29] MEDS: *HR* Heparin 5,000 UNIT/ML VIAL SQ SCH ×2 (05:11→18:34)
[2020-10-29] MEDS: Cefepime HCl 2,000 MG in Water for inj. (sterile) 20 ML IVP SCH ×2 (05:11→18:34)
[2020-10-29] MEDS: Chlorhexidine Rinse 15 ML MOUTHWASH MM SCH ×2 (08:01→20:28)
[2020-10-29] MEDS: Pantoprazole 40 MG VIAL IVP SCH (08:01)
[2020-10-29] MEDS: Bisacodyl 10 MG RECTAL SUPPOSITORY RC SCH (08:04)
[2020-10-29] MEDS: Thiamine (B-1) 100 MG in 0.9 % Sodium Chloride 50 ML IVPB SCH (08:57)
[2020-10-29] MEDS: levETIRAcetam 750 MG in 0.9 % Sodium Chloride 100 ML IVPB SCH ×2 (08:58→20:28)
[2020-10-29] MEDS ORDERED: *HR* FentaNYL (PF) 100 MCG/2 ML VIAL IVP ONE (10:26)
[2020-10-29] MEDS ORDERED: *HR* FentaNYL PATCH 25 MCG PATCH TD SCH (10:30)
[2020-10-29] MEDS: DAPTOmycin 400 MG in 0.9 % Sodium Chloride 100 ML IVPB SCH (12:27)
[2020-10-30] MEDS: Artificial Tears SOLN 15 ML BOTTLE BOTH EYES SCH ×6 (00:09→20:03)
[2020-10-30 04:31] LABS: Basophils # 0.1 K/mcL (0.0-0.2); Basophils % 0.6 %; Eosinophils # 0.9 K/mcL (0.0-0.6); Eosinophils % 8.3 %; Hematocrit 23.8 % (37.5-50.1); Hemoglobin 7.3 g/dL (12.9-16.9); Immature Granulocytes % 0.6 % (0-4); Lymphocytes # 1.1 K/mcL (0.6-4.6); Lymphocytes % 9.9 %; Mean Corpuscular HGB Conc 30.7 g/dL (31.6-35.5); Mean Corpuscular Hemoglobin 29.2 pg (28.0-33.3); Mean Corpuscular Volume 95.2 fL (83.0-100.0); Mean Platelet Volume 10.7 fL (9.4-12.4); Monocytes # 0.8 K/mcL (0.0-1.3); Monocytes % 6.9 %; Neutrophils # 8.4 K/mcL (1.6-8.9); Nucleated Red Blood Cells 0.2 /100 WBC (0); Platelet Count 341 K/mcL (140-400); Red Cell Distribution Width 20.9 % (11.5-14.5); Segmented Neutrophils % 73.7 %; White Blood Count 11.3 K/mcL (4.3-11.1)
[2020-10-30] MEDS: *HR* Heparin 5,000 UNIT/ML VIAL SQ SCH ×2 (05:02→18:30)
[2020-10-30] MEDS: Cefepime HCl 2,000 MG in Water for inj. (sterile) 20 ML IVP SCH ×2 (05:02→18:29)
[2020-10-30 05:11] LABS: Calcium 9.2 mg/dL (8.6-10.3); Potassium 4.3 mEq/L (3.5-5.1)
[2020-10-30] MEDS: Silvasorb 44.4 ML TUBE TP SCH (06:30)
[2020-10-30] MEDS: FentaNYL (PF) 1,000 MCG/100 ML IV.SOLN IVC SCH (07:11)
[2020-10-30] MEDS: Dexmedetomidine HCl 400 MCG/100 ML MLS IVC SCH (07:11)
[2020-10-30] MEDS: Norepinephrine 8 MG in 0.9 % Sodium Chloride 250 ML IVC SCH ×2 (07:12→21:52)
[2020-10-30] MEDS: Chlorhexidine Rinse 15 ML MOUTHWASH MM SCH ×2 (10:41→20:03)
[2020-10-30] MEDS: Pantoprazole 40 MG VIAL IVP SCH (10:41)
[2020-10-30] MEDS: Thiamine (B-1) 100 MG in 0.9 % Sodium Chloride 50 ML IVPB SCH (10:42)
[2020-10-30] MEDS: Bisacodyl 10 MG RECTAL SUPPOSITORY RC SCH (10:43)
[2020-10-30] MEDS: levETIRAcetam 750 MG in 0.9 % Sodium Chloride 100 ML IVPB SCH ×2 (10:43→20:03)
[2020-10-30] MEDS: DAPTOmycin 400 MG in 0.9 % Sodium Chloride 100 ML IVPB SCH (11:59)
[2020-10-30] MEDS: *HR* OxyCODONE Oral Soln 5 MG/5 ML UD.LIQ GTUBE PRN (13:33)
[2020-10-30] MEDS ORDERED: Bacitracin OINT PKT TP SCH (21:00)
[2020-10-31] MEDS: Artificial Tears SOLN 15 ML BOTTLE BOTH EYES SCH ×7 (03:48→23:31)
[2020-10-31 04:04] LABS: Basophils # 0.1 K/mcL (0.0-0.2); Basophils % 0.8 %; Eosinophils % 11.2 %; Hematocrit 25.7 % (37.5-50.1); Hemoglobin 7.5 g/dL (12.9-16.9); Immature Granulocytes % 0.3 % (0-4); Lymphocytes # 1.2 K/mcL (0.6-4.6); Lymphocytes % 13.8 %; Mean Corpuscular HGB Conc 29.2 g/dL (31.6-35.5); Mean Corpuscular Volume 95.9 fL (83.0-100.0); Mean Platelet Volume 10.3 fL (9.4-12.4); Monocytes # 0.6 K/mcL (0.0-1.3); Monocytes % 7.4 %; Neutrophils # 5.8 K/mcL (1.6-8.9); Nucleated Red Blood Cells 0.3 /100 WBC (0); Platelet Count 373 K/mcL (140-400); Red Blood Count 2.68 M/mcL (4.19-5.50); Red Cell Distribution Width 21.4 % (11.5-14.5); Segmented Neutrophils % 66.5 %; White Blood Count 8.7 K/mcL (4.3-11.1)
[2020-10-31 04:05] LABS: VBG Ionized Calcium 1.43 mmol/L (1.15-1.35)
[2020-10-31 04:22] LABS: Calcium 9.4 mg/dL (8.6-10.3); Magnesium 2.1 mg/dL (1.6-2.6); Phosphorous 4.7 mg/dL (2.7-4.5)
[2020-10-31] MEDS: Cefepime HCl 2,000 MG in Water for inj. (sterile) 20 ML IVP SCH ×2 (05:13→17:42)
[2020-10-31] MEDS: *HR* Heparin 5,000 UNIT/ML VIAL SQ SCH ×2 (05:13→17:43)
[2020-10-31] MEDS: *HR* OxyCODONE Oral Soln 5 MG/5 ML UD.LIQ GTUBE PRN (05:30)
[2020-10-31] MEDS: Pantoprazole 40 MG VIAL IVP SCH (08:15)
[2020-10-31] MEDS: Chlorhexidine Rinse 15 ML MOUTHWASH MM SCH ×2 (08:15→21:38)
[2020-10-31] MEDS: Bisacodyl 10 MG RECTAL SUPPOSITORY RC SCH (08:16)
[2020-10-31] MEDS: Silvasorb 44.4 ML TUBE TP SCH (08:17)
[2020-10-31] MEDS: levETIRAcetam 750 MG in 0.9 % Sodium Chloride 100 ML IVPB SCH ×2 (08:21→21:38)
[2020-10-31] MEDS: Thiamine (B-1) 100 MG in 0.9 % Sodium Chloride 50 ML IVPB SCH (08:21)
[2020-10-31] MEDS: Dexmedetomidine HCl 400 MCG/100 ML MLS IVC SCH (08:22)
[2020-10-31] MEDS: FentaNYL (PF) 1,000 MCG/100 ML IV.SOLN IVC SCH ×2 (08:22→10:55)
[2020-10-31] MEDS: DAPTOmycin 400 MG in 0.9 % Sodium Chloride 100 ML IVPB SCH (12:00)
[2020-10-31] MEDS: FentaNYL (PF) 2,500 MCG/50 ML IV.SOLN IVC SCH (13:53)
[2020-10-31] MEDS: Norepinephrine 8 MG in 0.9 % Sodium Chloride 250 ML IVC SCH (23:30)
[2020-11-01] MEDS ORDERED: 0.9 % Sodium Chloride 500 ML ONE (01:26)
[2020-11-01] MEDS ORDERED: 0.9 % Sodium Chloride 500 ML IVC ONE (01:30)
[2020-11-01] MEDS: FentaNYL (PF) 2,500 MCG/50 ML IV.SOLN IVC SCH ×2 (01:30→18:29)
[2020-11-01] MEDS: Artificial Tears SOLN 15 ML BOTTLE BOTH EYES SCH ×5 (04:13→20:19)
[2020-11-01] MEDS ORDERED: Phenylephrine 10 MG in 0.9 % Sodium Chloride 250 ML IVC SCH (04:15)
[2020-11-01 04:42] LABS: ABG Base Excess -4 mEq/L (-2 to 3); ABG HCO3 24 mEq/L (21-27); ABG Oxygen Saturation 90 % (95-98); ABG PCO2 60 mmHg (35-45); ABG PH 7.21 pH Units (7.32-7.45); ABG PO2 71 mmHg (85-104); ABG TCO2 26 mEq/L (20-26); Blood Gas VT 420 cc
[2020-11-01 04:47] LABS: Basophils # 0.1 K/mcL (0.0-0.2); Basophils % 0.7 %; Eosinophils # 0.9 K/mcL (0.0-0.6); Eosinophils % 9.5 %; Hematocrit 25.2 % (37.5-50.1); Hemoglobin 7.4 g/dL (12.9-16.9); Immature Granulocytes % 0.3 % (0-4); Lymphocytes # 1.2 K/mcL (0.6-4.6); Lymphocytes % 12.4 %; Mean Corpuscular HGB Conc 29.4 g/dL (31.6-35.5); Mean Corpuscular Hemoglobin 28.9 pg (28.0-33.3); Mean Corpuscular Volume 98.4 fL (83.0-100.0); Mean Platelet Volume 10.5 fL (9.4-12.4); Monocytes # 1.2 K/mcL (0.0-1.3); Neutrophils # 6.4 K/mcL (1.6-8.9); Nucleated Red Blood Cells 0.3 /100 WBC (0); Platelet Count 376 K/mcL (140-400); Red Blood Count 2.56 M/mcL (4.19-5.50); Red Cell Distribution Width 21.4 % (11.5-14.5); Segmented Neutrophils % 65.1 %; White Blood Count 9.9 K/mcL (4.3-11.1)
[2020-11-01 04:48] LABS: VBG Ionized Calcium 1.44 mmol/L (1.15-1.35)
[2020-11-01 05:03] LABS: Calcium 9.2 mg/dL (8.6-10.3); Potassium 5.4 mEq/L (3.5-5.1)
[2020-11-01] MEDS: *HR* Heparin 5,000 UNIT/ML VIAL SQ SCH (06:17)
[2020-11-01] MEDS: Cefepime HCl 2,000 MG in Water for inj. (sterile) 20 ML IVP SCH (06:17)
[2020-11-01] MEDS: Dexmedetomidine HCl 400 MCG/100 ML MLS IVC SCH (07:04)
[2020-11-01] MEDS: Silvasorb 44.4 ML TUBE TP SCH (07:04)
[2020-11-01] MEDS: Chlorhexidine Rinse 15 ML MOUTHWASH MM SCH (08:02)
[2020-11-01] MEDS: Bisacodyl 10 MG RECTAL SUPPOSITORY RC SCH (08:02)
[2020-11-01] MEDS: Pantoprazole 40 MG VIAL IVP SCH (08:02)
[2020-11-01] MEDS: Thiamine (B-1) 100 MG in 0.9 % Sodium Chloride 50 ML IVPB SCH (08:02)
[2020-11-01] MEDS: levETIRAcetam 750 MG in 0.9 % Sodium Chloride 100 ML IVPB SCH (08:02)
[2020-11-01] MEDS: Norepinephrine 8 MG in 0.9 % Sodium Chloride 250 ML IVC SCH (09:01)
[2020-11-01] MEDS ORDERED: *HR* LORazepam Oral Conc 2 MG/ML PO PRN (14:46)
[2020-11-01] MEDS ORDERED: Ipratropium/Albuterol Neb 3 ML IH PRN (14:46)
[2020-11-01] MEDS ORDERED: Morphine Sulfate 2 MG/ML SYRINGE IVP PRN (14:46)
[2020-11-01] MEDS ORDERED: Hyoscyamine SL 0.125 MG TAB.SUBL SL PRN (14:46)
[2020-11-01] MEDS ORDERED: Acyclovir 750 MG in D5% in Water 250 ML IVPB SCH (18:00)
[2020-11-01] MEDS ORDERED: Dexamethasone 4 MG/ML VIAL IVP SCH (18:00)
[2020-11-01 20:16] VITALS: BP 36/25
[2020-11-02 13:07] LABS: HSV 1 DNA Not Detected (Not Detect); HSV 2 DNA Not Detected (Not Detect)
== END 2020-11-01 22:50 | disposition expired | DRG 3 ==
LOC: EMEROOARM 13:34 → 3ANU 13:34 → ICNU 15:17
PROVIDERS: ADMIT Internal Medicine; ATTEND Internal Medicine
PROC: ENDOBRF (2020-10-12 10:35)